=== PATIENT | female | born 1960 | race Caucasian/White ===

== ENCOUNTER → 2018-06-04 07:26 | Outpatient (CLI) | payer OTHER, SELFPAY | PROVIDERS: Family Provider Family Medicine; PCP Family Medicine; Visit Provider Family Medicine | DX: Z12.31 Encounter for screening mammogram for malignant neoplasm of breast (principal) | CPT/HCPCS: 77063; 77067 ==

== ENCOUNTER → 2019-02-26 06:51 | Outpatient (CLI) | payer OTHER, SELFPAY ==
[2019-02-16 13:09] VITALS: BMI 31.5
--- NOTE | 2019-02-26 10:00 | STRESSREP_ITS ---
Stress Test Report Date: February 26, 2019 Procedure: Pharmacologic stress nuclear imaging study Indications: Dyspnea Consent: Per the patient Procedure: The patient underwent pharmacologic (Regadenoson) evaluation with a peak heart rate of 105 beats per minute (65 %predicted maximal heart rate) and a peak blood pressure of 130/78 mmHg. The baseline ECG demonstrated normal sinus rhythm no significant ST-T changes. EKG during lexiscan infusion revealed no significant change from baseline. EKG post infusion revealed no significant change from baseline [There were no cardiac dysrhythmias pretest, during pharmacologic infusion, or recovery]. [There was no complaint of chest discomfort during pharmacologic infusion or recovery]. Patient had some shortness of breath with Lexiscan infusion. The examination was discontinued secondary to completion of protocol. Impression: 1. Lexiscan stress test test is negative for Lexiscan infusion induced EKG changes of ischemia. 2. Lexiscan stress test test negative for Lexiscan infusion induced chest pain. 3. Results of the nuclear portion of the test is as below Myocardial perfusion imaging study: Technique: The patient was injected with 11.5 millicuries of technetium 99m Cardiolite and subsequently rest SPECT Cardiolite nuclear imaging was obtained in the horizontal long, vertical long, and short axis views. The patient underwent pharmacologic (Regadenoson) evaluation with a peak heart rate of 105 beats per minute (65 % percent predicted maximal heart rate) and a peak blood pressure of 130 mmHg. The patient was injected with 33.3 millicuries of technetium 99m Cardiolite and subsequently stress SPECT Cardiolite nuclear imaging was obtained in the horizontal long, vertical long, and short axis views. A gated Cardiolite study at peak stress was obtained. Interpretation: Rest and stress SPECT Cardiolite nuclear imaging status post realignment, normalization, and attenuation correction demonstrate normal myocardial radioisotope uptake in the rest and stress images. Gated images reveal no significant regional wall motion abnormalities. The reported LVEF is greater than 70%. Impression: 1. There is no evidence of significant ischemia or infarction. 2. Estimated ejection fraction is greater than 70%. This note was generated with [employer] software. It may contain incorrect words, spelling, and punctuation that were not noted in checking the note before signing.
== END ==
PROVIDERS: Family Provider Family Medicine; PCP Family Medicine; Referring Provider Specialist; Visit Provider Specialist
DX: I10 Essential (primary) hypertension (principal); R06.09 Other forms of dyspnea; R06.02 Shortness of breath
CPT/HCPCS: 78452; 93017; 93306; A9500; A4216; J2785

== ENCOUNTER → 2019-06-08 08:22 | Outpatient (CLI) | payer OTHER, SELFPAY ==
[2019-03-02 10:58] VITALS: BMI 30.8
--- NOTE | 2019-06-08 08:24 | BI_ITS ---
MAMMOGRAPHY - BILATERAL SCREENING 3-D TOMOSYNTHESIS REASON FOR EXAM: Female, 59 years old. Bilateral Screening 3-D tomosynthesis PERTINENT HISTORY: Grandmother on the paternal side with breast cancer.. TECHNIQUE: 2-D mammograms and 3-D Tomosynthesis of the breast (s) were performed. CAD was performed. COMPARISON: 06/04/2018,. FINDINGS: The breast composition is composed of scattered fibroglandular density. A 1.4 cm focal prominence is visualized on both the MLO and also CC view about 5 cm from the nipple, along the 6:00 axis, and further assessment with spot compression mammogram and if persistent with sonogram is recommended as follow-up. Scattered benign calcifications are seen. No dense spiculated masses or suspicious microcalcifications are identified. No architectural distortion is identified. There is no skin thickening or retraction. BI/SCREEN MAMM (CAD) W/KAY BILAT IMPRESSION: A 1.4 cm focal prominence is visualized on both the MLO and also CC view about 5 cm from the nipple, along the 6:00 axis, and further assessment with spot compression mammogram and if persistent with sonogram is recommended as follow-up. ASSESSMENT CATEGORY: BIRADS Category 0: Incomplete. Need additional imaging evaluation as above. A letter regarding these results will be sent to the patient by the facility within 30 days. FOLLOW UP RECOMMENDATION: Additional imaging recommended as above. (E) Approximately 10% of breast cancers are not detected by mammography. A normal mammogram should not delay biopsy of a clinically suspicious abnormality. Electronically Signed: Jason Null MD at 15:19 EDT Tel [phone], Service support ,
== END ==
PROVIDERS: Family Provider Family Medicine; PCP Family Medicine; Referring Provider Family Medicine; Visit Provider Family Medicine
DX: Z12.31 Encounter for screening mammogram for malignant neoplasm of breast (principal); Z80.3 Family history of malignant neoplasm of breast
CPT/HCPCS: 77063; 77067

== ENCOUNTER → 2019-06-18 13:48 | Outpatient (CLI) | payer OTHER, SELFPAY ==
[2019-03-02 10:58] VITALS: BMI 30.8
--- NOTE | 2019-06-18 13:56 | BI_ITS ---
MAMMOGRAPHY - UNILATERAL DIAGNOSTIC: RIGHT BREAST REASON FOR EXAM: Female, 59 years old. Abnormal screening mammogram. PERTINENT HISTORY: Grandmother with breast cancer. TECHNIQUE: Compression spot views of the right breast were obtained. CAD: Full Field Digital Mammography with Computer Added Detection was performed. COMPARISON: Comparison is made with prior study dated June 08, 2019. FINDINGS: Breast Composition: There are scattered areas of fibroglandular density. There are no dominant masses or suspicious calcifications. No other significant abnormalities are identified. BI/DIAG MAMM W/CAD, UNILAT IMPRESSION: No mammographic abnormality is seen. Ultrasound correlation is recommended. ASSESSMENT CATEGORY: BIRADS Category 0: Incomplete. Need additional imaging evaluation. A letter regarding these results will be sent to the patient by the facility within 30 days. Approximately 10% of breast cancers are not detected by mammography. A normal mammogram should not delay biopsy of a clinically suspicious abnormality. Electronically Signed: Phoenix Rawls, at 15:35 EDT , Service support ,
--- NOTE | 2019-06-18 13:57 | US_ITS ---
STUDY: ULTRASOUND BREAST - RIGHT REASON FOR EXAM: Female, 59 years old. Abnormal screening mammogram. TECHNIQUE: Axial and longitudinal images of the RIGHT breast were performed with a high resolution ultrasound transducer. COMPARISON: Comparison is made with prior mammogram done earlier in the day as well as prior mammogram dated June 08, 2019. FINDINGS: RIGHT Breast: There is evidence of a 6 mm x 7 mm x 7 mm hypoechoic irregular density with shadowing at the 6:00 position of the breast at 1 cm from the nipple. A biopsy is recommended. US/Breast Limited Unilateral IMPRESSION: 6 mm x 7 mm x 7 mm irregular hypoechoic density with posterior acoustical shadowing at the 6:00 position breast at 1 cm from the nipple. Correlation with biopsy is recommended. ASSESSMENT CATEGORY: BIRADS Category 4: Suspicious - Biopsy Should Be Considered. A letter regarding these results will be sent to the patient by the facility within 30 days. Electronically Signed: Phoenix Rawls, at 15:38 EDT , Service support ,
== END ==
PROVIDERS: Family Provider Family Medicine; PCP Family Medicine; Referring Provider Family Medicine; Visit Provider Family Medicine
DX: R92.8 Other abnormal and inconclusive findings on diagnostic imaging of breast (principal)
CPT/HCPCS: 76642; 77065

== ENCOUNTER → 2019-06-25 14:07 | Outpatient (CLI) | payer OTHER, SELFPAY ==
[2019-06-24 08:46] VITALS: BMI 30.8
--- NOTE | 2019-06-25 | IMM_PTH ---
PATIENT: CONNOR GARCIA LOC: OPUS U#:[id number] AGE/SX: 65/F ROOM: RE06/25/[address]: Dr. Sean Carballo MD : 1960 BED: DIS: SPEC #: [id number] RECD: 06/29/19 12:12 STATUS: NEL REQ #: [id number] LI: 06/25/19 00:[address]: Sean Carballo DEPT: IMMUNOHISTOCHEMISTRY RECD BY: Lauren Reis ENTERED: 06/29/19 12:13 SP TYPE: IMMUNO OTHR DR: Dr. Ilda Yeager DO Tissues: Right breast, NOS Procedures: Calponin-1(initial) P40 (add) PHYSICIAN & [place] [id number] SPECIMEN INFORMATION: Tissue Source: Right breast mass at 6 o'clock Clinical Info: Right breast mass at 6 o'clock Specimen Number: [id number] CPT code: 33477, 09062 METHODOLOGY: Deparaffinized sections of prefer/formalin-fixed tissue or PAP/DQ stained slides are incubated with monoclonal/polyclonal antibodies/oligonucleotide probes. Localization is made via biotin free immunoperoxidase method. Appropriate controls are performed and reacted as expected. Results on target cell population are indicated in the following table: RESULTS: ANTIBODY / CLONE RESULT P40 (BC28) positive Calponin-1 (WS767R) positive These tests were developed and their performance characteristics determined by [facility]. They may not have been cleared or approved by the U.S. Food and Drug Administration. The FDA has determined that such clearance or approval is not necessary. INTERPRETATION: Right breast mass at 6 o'clock, ultrasound-guided biopsy: Benign breast tissue. AM:[place] 06/29/19
--- NOTE | 2019-06-25 | BRBX_PTH ---
PATIENT: CONNOR GARCIA LOC: OPUS U#:[id number] AGE/SX: 65/F ROOM: RE06/25/[address]: Dr. Sean Carballo MD : 1960 BED: DIS: SPEC #: [id number] RECD: 06/25/19 15:19 STATUS: NEL TRICIA #: [id number] LI: 06/25/19 00:[address]: Sean Carballo DEPT: SURGICAL PATHOLOGY RECD BY: Harish Castro ENTERED: 06/26/19 08:40 SP TYPE: BREAST BX OTHR DR: Dr. Ilda Yeager DO Tissues: Right breast, NOS Procedures: Surgery Specimen Level IV HEADER OPERATION: Ultrasound-guided right breast biopsy PRE-OP DIAGNOSIS: Right breast mass at 6 o'clock TISSUE SUBMITTED: Right breast mass at 6 o'clock ISCHEMIC TIME: 30 seconds FIXATION TIME: 4.5 hours MICROSCOPIC DIAGNOSIS Right breast, ultrasound-guided needle core biopsy: Fibrocystic change. Focal microcalcifications. No evidence of malignancy. AM:[place] 06/29/19 COMMENT Immunohistochemistry ([id number]) supports the above diagnosis. MICROSCOPIC DESCRIPTION Slides are reviewed. GROSS DESCRIPTION Received in fixative is one container labeled with the patient's name and designated right breast. The specimen consists of multiple elongated fragments of paulino-yellow fibroadipose tissue that in aggregate measure 2.5 x 2 x 0.1 cm. The entire specimen is submitted in one cassette. / SJ:vent[place] 06/26/19 TC:5 CPT: 92679
--- NOTE | 2019-06-25 14:25 | US_ITS ---
STUDY: ULTRASOUND BREAST - RIGHT REASON FOR EXAM: Female, 59 years old. Ultrasound guided right breast biopsy. TECHNIQUE: Axial and longitudinal images of the RIGHT breast were performed with a high resolution ultrasound transducer. COMPARISON: Comparison is made with prior ultrasound of the right breast dated June 18, 2019. FINDINGS: RIGHT Breast: Under direct sonographic guidance, the surgeon performed core biopsies of the 5 mm x 4 mm x 4 mm hypoechoic irregular nodule at the 6:00 position breast US/US Breast Biopsy 1st Lesion IMPRESSION: Ultrasound guided right breast biopsy. ASSESSMENT CATEGORY: BIRADS Category 4: Suspicious - Biopsy Should Be Considered. A letter regarding these results will be sent to the patient by the facility within 30 days. Electronically Signed: Phoenix Rawls, at 15:33 EDT , Service support ,
--- NOTE | 2019-06-25 15:12 | PCM.OPRPT ---
Problem List (1) Breast mass, right Status: Acute Report of Operation Date of Procedure: 06/25/19 Pre-Operative Diagnosis: Right breast mass Post-Operative Diagnosis: Same Surgery/Procedure Performed:: Ultrasound-guided right breast core biopsy Specimen's removed: Right breast biopsy Description of Procedure: The patient was placed in supine position and ultrasound of the right breast was performed by geospatial information technologist. The small lesion was identified. Next the inferior breast was prepped and draped in usual sterile fashion and injected with lidocaine under ultrasound guidance. A skin berenice was made and the mammotome needle was placed adjacent to this mass under ultrasound guidance. Several passes were performed. The mammotome needle was then removed and a titanium clip was placed into this mass. That needle was removed and a Steri-Strip and bandage were placed over the incision. Patient tolerated the procedure well.
== END ==
PROVIDERS: Family Provider Family Medicine; PCP Family Medicine; Referring Provider Surgery; Visit Provider Surgery
DX: R92.0 Mammographic microcalcification found on diagnostic imaging of breast (principal); N63.10 Unspecified lump in the right breast, unspecified quadrant
CPT/HCPCS: 19083; 88305; 88341; 88342

== ENCOUNTER → 2019-08-12 08:33 | Outpatient (CLI) | payer OTHER, SELFPAY ==
[2019-07-15 08:37] VITALS: BMI 30.8
[2019-08-12 10:07] LABS: Absolute Lymphocyte Count 1.94 X10^3/uL (0.83-4.51); Basophil# 0.03 X10^3/uL; Basophil% 0.5 % (0-1); Eosinophil# 0.15 X10^3/uL; Eosinophils% 2.3 % (0-5); Hematocrit 45.5 % (37-47); Hemoglobin 14.8 g/dL (12.0-15.0); Lymphocyte # 1.94 X10^3/ul (4.0); Lymphocyte % 29.3 % (19-41); Mean Corp Hgb Conc 32.5 g/dL (32-36); Mean Corpuscular Hgb 29.7 pg (27.0-32.0); Mean Corpuscular Volume 91.4 fL (81-99); Mean Platelet Vol. 10.8 fl (6.2-12.0); Monocyte# 0.52 X10^3/uL; Monocyte% 7.9 % (0-10); NRBC Flagged by Analyzer 0 % (0-5); Neutrophil # 3.97 X10^3/uL (2.7-7.7); Neutrophil % 59.8 % (47-70); Platelet Count 245 K/mm3 (150-450); RBC Distribution Width CV 12.5 % (11.6-14.6); RBC Distribution Width SD 41.7 fl (35.1-43.9); Red Blood Count 4.98 M/mm3 (4.2-5.4); White Blood Count 6.6 K/mm3 (4.4-11.0)
[2019-08-12 10:33] LABS: ALB/GLOB Ratio 1.1 RATIO (0.9-2.4); AST(SGOT) 25 U/L (15-37); Alanine Aminotransfer ALT/SGPT 60 U/L (13-56); Alkaline Phosphatase 60 U/L (45-117); Anion Gap 5 (5-15); BUN 20 mg/dL (7-18); BUN/Creat Ratio 27.9 RATIO (10-20); Calcium,Total 9.1 mg/dL (8.5-10.1); Chloride 102 mmol/L (98-107); Cholesterol 199 mg/dL (200); Creatinine, Serum 0.72 mg/dL (0.55-1.02); EST Glomerular Filtration Rate 88 mL/min (>60); Est Glom Filt Rate - Afr Amer 107 mL/min (>60); Free T3 3.4 pg/mL (2.18-3.98); Globulin 3.7 g/dL (2.2-4.2); Glucose 101 mg/dL (74-106); High Density Lipoprotein 61 mg/dL; Potassium 3.7 mmol/L (3.5-5.1); Protein, Total 7.7 g/dL (6.4-8.2); Sodium Level 139 mmol/L (136-145); Thyroid Stim Hormone (TSH) 1.45 uIU/mL (0.358-3.74); Triglycerides 123 mg/dL; Very Low Density Lipoprotein 25 mg/dL (5-40)
== END ==
PROVIDERS: Family Provider Family Medicine; PCP Family Medicine; Referring Provider Family Medicine; Visit Provider Family Medicine
DX: E78.5 Hyperlipidemia, unspecified (principal); E03.9 Hypothyroidism, unspecified; Z51.81 Encounter for therapeutic drug level monitoring
CPT/HCPCS: 36415; 80053; 80061; 84439; 84443; 84481; 85025

== ENCOUNTER 2019-09-08 05:30 | Day surgery (SDC) | payer OTHER, SELFPAY ==
[2019-07-15 08:37] VITALS: BMI 30.8
--- NOTE | 2019-09-07 22:58 | PCM.HP.BLA ---
History and Physical Date of Admission: 09/08/19 HISTORY OF PRESENT ILLNESS 59 year old woman presents with some triggering of her right long finger. She has had injections with steroids in the past with some relief but it is persistent. She notices occasional zingers with activity. She had an x-ray done a couple of years ago which showed swelling of the middle finger without underlying bony pathology. She states it is getting tougher to straighten the finger when she has a triggering episode, but she is able to straighten her finger. Patient is right hand dominant. She presents at this time for further evaluation and treatment. PAST MEDICAL HISTORY Hyperthyroidism Hypertension History of skin cancer Pharyngitis PAST SURGICAL HISTORY colonoscopy tubal ligation appendectomy hysterectomy ALLERGIES No Known Allergies MEDICATIONS lisinopril-hydrochlorothiazide vitamin FAMILY HISTORY Father - Lung cancer, Hypertension Grandmother - Breast cancer Aunt - Breast cancer Brother - Kidney disease SOCIAL HISTORY Smoking Status: Never smoker alcohol intake: never substance use type: does not use REVIEW OF SYSTEMS General - Denies fever, fatigue, and weight loss. Eyes - Denies cataracts and glaucoma. ENT - Denies nasal congestion and sore throat. Endocrine - Denies excessive thirst and urination. Skin - Denies suspicious lesions and skin cancer. Musculoskeletal - Denies joint pain, joint stiffness, weakness of muscles and joints, back pain, and arthritis. Has trigger finger right long finger. Neuro - Denies headaches. Has occasional zingers in right long finger with activity. Cardiovascular - Denies chest pain, fatigue, and shortness of breath with exertion. Psych - Denies anxiety and depression. Respiratory - Denies chronic cough and shortness of breath. Gastrointestinal - Denies nausea, vomiting, diarrhea, and constipation. Hematologic - Denies abnormal bruising and bleeding. Genitourinary - Denies hematuria and urinary frequency. PHYSICAL EXAMINATION General - Alert and Oriented. HEENT - PERRL. EOMI. Throat is clear. Neck - Supple and nontender. No cervical adenopathy. Lungs - Clear to auscultation. Heart - Regular rate and rhythm. Abdomen - Soft and nondistended. Extremities - FROM. No axillary adenopathy. Radial pulses are palpable. On the right hand involving the long finger is evidence of triggering. A clicking sound is audible. Some thickening and some nodularity noted in the distal palmar crease by the long finger where the A1 sandip is located. She can straighten her fingers without difficulty. No sensory deficits noted to pinprick. Patient is right hand dominant. Neuro - CN II-XII grossly intact. Psych - Normal mood and affect. ASSESSMENT Trigger finger, right long finger. PLAN X-ray reviewed. Clinically patient has trigger finger involving the right long finger. Recommend operative intervention with incision tendon sheath involving the A1 asndip to release the triggering. Surgery will be done under Micheal Block anesthesia on an outpatient basis. She will have a bulky dressing after surgery. She will be encouraged to use her fingers with range of motion exercises to minimize stiffness. Patient was informed of the risks and complications of the procedure including alternatives to surgery. These were discussed with the patient personally. Patient voices understanding and wishes to proceed. Some of the risks and complications were included in a form from the [employer]. Some of the risks and complications that were discussed included but were not inclusive of failure to diagnose including symptom relief, pain, infection, numbness, stiffness, loss of digit, RSD (CRPS), need for further surgery, contracture, and wound healing problems.
[2019-09-08 05:55] VITALS: BP 136/80; PULSE 82; RESP 16; TEMP 36.4; O2SAT 94; BMI 31.0
[2019-09-08] MEDS: Lactated Ringers 1,000 ML 100 ML IV ×2 (06:17→08:26)
[2019-09-08] MEDS: Cefazolin 2 GM in 0.9% Normal Saline 100 ML IV (07:27)
[2019-09-08] MEDS: Mupirocin Ointment 22gm Tube 1 APPLIC (08:00)
--- NOTE | 2019-09-08 08:11 | OP.PCM_ITS ---
Report of Operation Date of Procedure: 09/08/19 Pre-Operative Diagnosis: Trigger finger, right long finger. Post-Operative Diagnosis: Same. Surgery/Procedure Performed:: Incision tendon sheath trigger finger right long finger. Description of Surgical Findings:: 59 year old woman presents with some triggering of her right long finger. She has had injections with steroids in the past with some relief but it is persistent. She notices occasional zingers with activity. She had an x-ray done a couple of years ago which showed swelling of the middle finger without underlying bony pathology. She states it is getting tougher to straighten the finger when she has a triggering episode, but she is able to straighten her finger. Patient is right hand dominant. Patient was informed of the risks and complications of the procedure including alternatives to surgery. These were discussed with the patient personally. Patient voices understanding and wishes to proceed. Some of the risks and complications were included in a form from the [employer]. Some of the risks and complications that were discussed included but were not inclusive of failure to diagnose including symptom relief, pain, infection, numbness, stiffness, loss of digit, RSD (CRPS), need for further surgery, contracture, and wound healing problems. Total tourniquet time - 20 minutes. medical technician: None Type of Anesthesia:: Block,[place] Specimen's removed: None. Drains: None. Estimated Blood Loss (mL): 1 ml. Description of Procedure: Patient was taken to OR in supine position and was given IV sedation. A Micheal Block was administered. The right hand was prepped and draped in the usual fashion. SCD's were placed for DVT prophylaxis. Perioperative antibiotics were given intravenously. A horizontal marking was made over the A1 sandip at the distal palmar crease by the long finger. This marking was infiltrated with xylocaine and epinephrine. After waiting 5 minutes for the anesthetic to take effect, a horizontal incision was made over the A1 sandip at the distal palmar crease by the long finger. Incision was carried into the subcutaneous tissue. Using a hemostat, I dissected in a longitudinal direction to minimize injury to the adjacent digital nerves. Dissection was carried down to the A1 sandip tendon sheath to the right long finger. Using a scalpel, I incised the tendon sheath longitudinally distally up to the A2 sandip. The flexor tendons were able to glide through the released A1 sandip tendon sheath easily without evidence of any further obstruction. The wound was irrigated with saline. The horizontal incision was approximated with 5-0 Nylon vertical mattress sutures and simple interrupted sutures. The tourniquet was released after 20 minutes. Hemostasis obtained with compression and elevation. Antibiotic ointment was applied to the suture line followed by Xeroform gauze and 4x4 gauze followed by 2 inch Hernandez wrap. Patient tolerated the procedure well and was sent to PACU in satisfactory condition. Patient will be sent home on antibiotics and pain medication. She will keep her right hand elevated during the initial postop period. She is encouraged to use her fingers with range of motion to minimize stiffness. Patient will followup in a week for a wound check and for discussion of the pathology report. The sutures will be removed in two weeks. Grafts/Implants Used: None. - Complications None. - Admit VTE Documentation VTE Present on Admission: No VTE Mechan Device Prophylaxis: SCD's VTE Pharm Prophylaxis ordered?: No Code Visit Surgery Charges CPT - 13015 ICD-10 - M65.331
[2019-09-08 08:15] VITALS: BP 136/80; BP 137/77; PULSE 97; RESP 16; TEMP 36; O2SAT 97
--- NOTE | 2019-09-08 08:17 | DCINST_ITS ---
You will use the following diet at home:: No restrictions Discharge Activity: May not drive while taking narcotic pain medications., May Shower - in two days., - - no heavy lifting. keep right hand elevated. May shower in (days): 2 May resume sexual activity in: No Restrictions Weight Bearing Status: Weight bearing as tolerated Lifting Restrictions: 20 lbs. Keep extremity elevated above heart level: Right Arm Call your doctor if your incision/area has: Continuous Slow Oozing, Sudden Increased Bleeding, Increased Pain/ Swelling, Increased Redness, Foul Smelling Discharge, Swelling at the incision site Call your doctor if you observe: Fever of 101 or Higher, Coldness, Increased Pain, Shortness of breath, Chest pain, Calf discomfort, Uncontrolled pain Suture Line Care: - - after dressing removed in two days, apply bactroban ointment to suture line daily. Change Dressing in (Days):: 2 Cleanse incision/area with: - - may get incision wet in the shower in two days. Allergies/Adverse Reactions: Allergies No Known Allergies Allergy (Verified 09/01/19 11:37) Medications to take at Discharge lisinopril 20 mg-hydrochlorothiazide 12.5 mg tablet 1 tab PO DAILY 02/13/19 Multivitamin with Minerals [Multiple Vitamin] 1 ea PO DAILY 09/01/19 Cefadroxil [Duricef] 500 mg PO BID #8 cap 09/08/19 Oxycodone HCl/Acetaminophen [Percocet 5/325] 1 tab PO Q6H PRN PRN 5 Days #20 tab 09/08/19 The following prescriptions were given: Cefadroxil [Duricef] 500 mg PO BID #8 cap Prescription Printed Oxycodone HCl/Acetaminophen [Percocet 5/325] 1 tab PO Q6H PRN PRN 5 Days #20 tab PRN Reason: Pain Score 4-5/10 Prescription Printed Primary Care Physician: Ilda Yeager DO [Primary Care Provider] - Test Results: Test results from this visit will be discussed in further detail at your follow- up appointment, if applicable. Please Follow Up With: Michael Presley MD When: one week. call [phone] for appt. Proposed Discharge Date: 09/08/19
[2019-09-08 08:20] VITALS: BP 136/80; BP 141/80; PULSE 94; RESP 16; O2SAT 99
[2019-09-08 08:25] VITALS: BP 133/81; BP 136/80; PULSE 93; RESP 16; O2SAT 97
[2019-09-08 08:30] VITALS: BP 135/77; BP 136/80; PULSE 92; RESP 16; TEMP 36.2; O2SAT 99
[2019-09-08 09:00] VITALS: BP 136/80
== END 2019-09-08 09:14 | disposition home or self-care (01) ==
LOC: SDC 05:30 → AC 05:32
PROVIDERS: Family Provider Family Medicine; PCP Family Medicine; Referring Provider Surgery; Visit Provider Surgery
PROC: (CPT 26055; principal; 2019-09-08 07:20)
DX: M65.331 Trigger finger, right middle finger (principal); I10 Essential (primary) hypertension; Z79.899 Other long term (current) drug therapy; E05.90 Thyrotoxicosis, unspecified without thyrotoxic crisis or storm
CPT/HCPCS: 01810; 26055; J7120; A4216; J2405

== ENCOUNTER → 2019-11-26 14:07 | Outpatient (CLI) | payer OTHER, SELFPAY ==
[2019-09-28 16:43] VITALS: BMI 31.0
--- NOTE | 2019-11-26 14:08 | BI_ITS ---
MAMMOGRAPHY - UNILATERAL DIAGNOSTIC: RIGHT BREAST REASON FOR EXAM: Female, 59 years old. Six-month follow-up for prior right ultrasound-guided breast biopsy. PERTINENT HISTORY: Grandmother with breast cancer. TECHNIQUE: Digital unilateral breast ramonita (3D mammographic acquisition) in the CC and MLO projections. 2-D mediolateral oblique (MLO) and craniocaudad (CC) views of both breasts were obtained. CAD: Full Field Digital Mammography with Computer Added Detection was performed. COMPARISON: Comparison is made with prior mammogram dated June 18, 2019 and prior ultrasound dated June 25, 2019. FINDINGS: Breast Composition: The breasts are heterogeneously dense, which may obscure small masses. There are no dominant masses or suspicious calcifications. A tissue clip marker is seen within the small nodular density at the 6:00 position of the breast. No other significant abnormalities are identified. BI/DIAG MAMM W/CAD, UNILAT IMPRESSION: Stable unilateral diagnostic mammogram. One year follow-up mammogram recommended. (A) ASSESSMENT CATEGORY: BIRADS Category 2: Benign. A letter regarding these results will be sent to the patient by the facility within 30 days. Approximately 10% of breast cancers are not detected by mammography. A normal mammogram should not delay biopsy of a clinically suspicious abnormality. Electronically Signed: Phoenix Rawls, at 15:32 EST , Service support ,
== END ==
PROVIDERS: PCP Family Medicine; Referring Provider Surgery; Visit Provider Surgery
DX: N63.10 Unspecified lump in the right breast, unspecified quadrant (principal); Z80.3 Family history of malignant neoplasm of breast
CPT/HCPCS: 77061; 77065; G0279

== ENCOUNTER → 2020-06-23 08:42 | Outpatient (CLI) | payer OTHER, SELFPAY ==
[2019-09-28 16:43] VITALS: BMI 31.0
--- NOTE | 2020-06-23 08:46 | BI_ITS ---
MAMMOGRAPHY - BILATERAL SCREENING REASON FOR EXAM: Female, 60 years old. Routine annual screening examination. PERTINENT HISTORY: Grandmother with breast cancer. History of prior right ultrasound-guided breast biopsy. TECHNIQUE: Digital bilateral breast kay (3D mammographic acquisition) in the CC and MLO projections. 2-D mediolateral oblique (MLO) and craniocaudad (CC) views of both breasts were obtained. CAD: Full Field Digital Mammography with Computer Added Detection was performed. COMPARISON: Comparison is made with prior examination dated 06/08/2019 and 11/26/2019. FINDINGS: Breast Composition: The breasts are heterogeneously dense, which may obscure small masses. There are no dominant masses or suspicious calcifications. Once again, a tissue clip marker is seen at the 6 o''clock position of the right breast. No other significant abnormalities are identified. There has been no significant change since the prior study. BI/SCREEN MAMM (CAD) W/KAY BILAT IMPRESSION: Stable bilateral screening mammogram. Yearly follow-up mammogram recommended. (A) ASSESSMENT CATEGORY: BIRADS Category 2: Benign. A letter regarding these results will be sent to the patient by the facility within 30 days. Approximately 10% of breast cancers are not detected by mammography. A normal mammogram should not delay biopsy of a clinically suspicious abnormality. [id number] Electronically Signed: Phoenix Rawls, at 10:12 EDT , Service support ,
== END ==
PROVIDERS: PCP Family Medicine; Referring Provider Family Medicine; Visit Provider Family Medicine
DX: Z12.31 Encounter for screening mammogram for malignant neoplasm of breast (principal); Z80.3 Family history of malignant neoplasm of breast
CPT/HCPCS: 77063; 77067

== ENCOUNTER → 2021-07-31 10:24 | Outpatient (CLI) | payer BC, SELFPAY ==
[2019-09-28 16:43] VITALS: BMI 31.0
--- NOTE | 2021-07-31 10:54 | BI_ITS ---
MAMMOGRAPHY - BILATERAL SCREENING REASON FOR EXAM: Female, 61 years old. Routine annual screening examination. PERTINENT HISTORY: Grandmother with breast cancer. Aunt with breast cancer. Prior bilateral breast biopsies. TECHNIQUE: Digital bilateral breast kay (3D mammographic acquisition) in the CC and MLO projections. 2-D mediolateral oblique (MLO) and craniocaudad (CC) views of both breasts were obtained. CAD: Full Field Digital Mammography with Computer Added Detection was performed. COMPARISON: Comparison is made with prior study dated 06/23/2020 and 11/26/2019. FINDINGS: Breast Composition: The breasts are heterogeneously dense, which may obscure small masses. There are no dominant masses or suspicious calcifications. Once again, a tissue clip marker is seen at the 6 o''clock position of the right breast. Stable small benign-appearing bilateral axillary lymph nodes. No other significant abnormalities are identified. There has been no significant change since the prior study. BI/SCRN MAMM (CAD)W/KAY BILAT IMPRESSION: Stable bilateral screening mammogram. Yearly follow-up mammogram recommended. (A) ASSESSMENT CATEGORY: BIRADS Category 2: Benign. A letter regarding these results will be sent to the patient by the facility within 30 days. Approximately 10% of breast cancers are not detected by mammography. A normal mammogram should not delay biopsy of a clinically suspicious abnormality. [id number] Electronically Signed: Phoenix Rawls MD at 12:00 EDT , Service support ,
[2021-07-31 12:32] LABS: Hematocrit 43.2 % (37-47); Hemoglobin 14.4 g/dL (12.0-15.0); Mean Corp Hgb Conc 33.3 g/dL (32-36); Mean Platelet Vol. 11.3 fl (6.2-12.0); Platelet Count 265 K/mm3 (150-450); RBC Distribution Width CV 12.3 % (11.6-14.6); RBC Distribution Width SD 40.8 fl (35.1-43.9); White Blood Count 6.8 K/mm3 (4.4-11.0)
[2021-07-31 12:56] LABS: T3 Total - Triiodothyronine 1.37 ng/mL (0.6-1.81)
[2021-07-31 13:05] LABS: AST(SGOT) 21 U/L (15-37); Alanine Aminotransfer ALT/SGPT 42 U/L (13-56); Albumin, Serum 3.9 g/dL (3.2-5.0); Alkaline Phosphatase 54 U/L (45-117); Anion Gap 5 (5-15); BUN 17 mg/dL (7-18); BUN/Creat Ratio 26.5 RATIO (10-20); Calcium,Total 9.2 mg/dL (8.5-10.1); Chloride 105 mmol/L (98-107); Creatinine, Serum 0.64 mg/dL (0.55-1.02); EST Glomerular Filtration Rate 100 mL/min (>60); Est Glom Filt Rate - Afr Amer 121 mL/min (>60); Globulin 3.8 g/dL (2.2-4.2); Glucose 99 mg/dL (74-106); Potassium 3.3 mmol/L (3.5-5.1); Protein, Total 7.7 g/dL (6.4-8.2); Sodium Level 139 mmol/L (136-145); T4 Total, Thyroxin 8.5 ug/dL (4.8-13.9); Thyroid Stim Hormone (TSH) 1.03 uIU/mL (0.358-3.74)
== END ==
PROVIDERS: PCP Family Medicine; Referring Provider Family Medicine; Visit Provider Family Medicine
DX: Z12.31 Encounter for screening mammogram for malignant neoplasm of breast (principal); E03.9 Hypothyroidism, unspecified; E78.5 Hyperlipidemia, unspecified; Z51.81 Encounter for therapeutic drug level monitoring
CPT/HCPCS: 36415; 77063; 77067; 80053; 84436; 84443; 84480; 85027

== ENCOUNTER → 2022-08-16 | Outpatient (CLI) | payer BC, SELFPAY ==
--- NOTE | 2022-08-16 10:03 | BI_ITS ---
MAMMOGRAPHY - BILATERAL SCREENING REASON FOR EXAM: Female, 62 years old. Routine annual screening examination. PERTINENT HISTORY: Grandmother with breast cancer. Aunt with breast cancer. TECHNIQUE: Digital bilateral breast kay (3D mammographic acquisition) in the CC and MLO projections. 2-D mediolateral oblique (MLO) and craniocaudad (CC) views of both breasts were obtained. CAD: Full Field Digital Mammography with Computer Added Detection was performed. COMPARISON: Comparison is made with prior study dated 07/31/2021 and 06/23/2020. FINDINGS: Breast Composition: The breasts are heterogeneously dense, which may obscure small masses. There are no dominant masses or suspicious calcifications. A tissue clip marker is once again seen at the 6 o''clock position of the right breast No other significant abnormalities are identified. There has been no significant change since the prior study. BI/SCRN MAMM (CAD)W/KAY BILAT IMPRESSION: Stable bilateral screening mammogram. Yearly follow-up mammogram recommended. (A) ASSESSMENT CATEGORY: BIRADS Category 2: Benign. A letter regarding these results will be sent to the patient by the facility within 30 days. Approximately 10% of breast cancers are not detected by mammography. A normal mammogram should not delay biopsy of a clinically suspicious abnormality. [id number] Electronically Signed: Phoenix Rawls MD at 11:09 EDT ,
== END | disposition home or self-care (01) ==
LOC: OPBI 10:01
PROVIDERS: PCP Family Medicine; Visit Provider Family Medicine
DX: Z12.31 Encounter for screening mammogram for malignant neoplasm of breast (principal); Z80.3 Family history of malignant neoplasm of breast
CPT/HCPCS: 77063; 77067

== ENCOUNTER → 2022-09-01 | Outpatient (CLI) | payer BC, SELFPAY ==
[2022-09-01 09:33] LABS: Absolute Lymphocyte Count 2.58 X10^3/uL (0.83-4.51); Absolute Neutrophil Count 5.4 X10^3/uL (2.0-7.7); Basophil# 0.04 X10^3/uL; Basophil% 0.4 % (0-1); Eosinophil# 0.19 X10^3/uL; Eosinophils% 2.1 % (0-5); Hematocrit 43.9 % (37-47); Hemoglobin 14.5 g/dL (12.0-15.0); Lymphocyte # 2.58 X10^3/ul (0.83-4.51); Lymphocyte % 28.8 % (19-41); Mean Corpuscular Hgb 30.7 pg (27.0-32.0); Mean Platelet Vol. 10.4 fl (6.2-12.0); Monocyte# 0.69 X10^3/uL; Monocyte% 7.7 % (0-10); NRBC Flagged by Analyzer 0 % (0-5); Neutrophil # 5.41 X10^3/uL (2.7-7.7); Neutrophil % 60.4 % (47-70); Platelet Count 287 K/mm3 (150-450); RBC Distribution Width SD 44.6 fl (35.1-43.9); Red Blood Count 4.72 M/mm3 (4.2-5.4)
[2022-09-01 10:07] LABS: AST(SGOT) 17 U/L (15-37); Alanine Aminotransfer ALT/SGPT 36 U/L (13-56); Albumin, Serum 3.7 g/dL (3.2-5.0); Alkaline Phosphatase 56 U/L (45-117); Anion Gap 7 (5-15); BUN 18 mg/dL (7-18); BUN/Creat Ratio 29.4 RATIO (10-20); Calcium,Total 9.1 mg/dL (8.5-10.1); Chloride 103 mmol/L (98-107); Cholesterol 191 mg/dL (200); Creatinine, Serum 0.61 mg/dL (0.55-1.02); EST Glomerular Filtration Rate 105 mL/min (>60); Est Glom Filt Rate - Afr Amer 127 mL/min (>60); Free T3 2.6 pg/mL (2.18-3.98); Globulin 3.6 g/dL (2.2-4.2); Glucose 104 mg/dL (74-106); High Density Lipoprotein 70 mg/dL; Magnesium 2.3 mg/dL (1.6-2.6); Potassium 3.7 mmol/L (3.5-5.1); Protein, Total 7.3 g/dL (6.4-8.2); Sodium Level 140 mmol/L (136-145); T4 Free Direct 0.92 ng/dL (0.76-1.46); Thyroid Stim Hormone (TSH) 1.08 uIU/mL (0.358-3.74); Triglycerides 107 mg/dL; Very Low Density Lipoprotein 21 mg/dL (5-40)
== END | disposition home or self-care (01) ==
LOC: LAB 08:35
PROVIDERS: PCP Family Medicine; Visit Provider Family Medicine
DX: Z00.00 Encounter for general adult medical examination without abnormal findings (principal); E87.6 Hypokalemia; Z51.81 Encounter for therapeutic drug level monitoring
CPT/HCPCS: 36415; 80053; 80061; 83735; 84439; 84443; 84481; 85025

== ENCOUNTER → 2022-12-19 | Outpatient (CLI) | payer BC, SELFPAY ==
[2022-12-19 17:30] LABS: Absolute Lymphocyte Count 2.42 X10^3/uL (0.83-4.51); Absolute Neutrophil Count 4.5 X10^3/uL (2.0-7.7); Basophil# 0.04 X10^3/uL; Basophil% 0.5 % (0-1); Eosinophil# 0.19 X10^3/uL; Eosinophils% 2.4 % (0-5); Hematocrit 44.5 % (37-47); Hemoglobin 14.2 g/dL (12.0-15.0); Lymphocyte # 2.42 X10^3/ul (0.83-4.51); Lymphocyte % 30.6 % (19-41); Mean Corp Hgb Conc 31.9 g/dL (32-36); Mean Corpuscular Hgb 29.5 pg (27.0-32.0); Mean Corpuscular Volume 92.5 fL (81-99); Mean Platelet Vol. 11.4 fl (6.2-12.0); Monocyte# 0.73 X10^3/uL; Monocyte% 9.2 % (0-10); NRBC Flagged by Analyzer 0 % (0-5); Neutrophil # 4.52 X10^3/uL (2.7-7.7); Platelet Count 273 K/mm3 (150-450); RBC Distribution Width CV 12.6 % (11.6-14.6); RBC Distribution Width SD 42.9 fl (35.1-43.9); Red Blood Count 4.81 M/mm3 (4.2-5.4); White Blood Count 7.9 K/mm3 (4.4-11.0)
[2022-12-19 18:08] LABS: Vitamin B12 553 pg/mL (211-911)
[2022-12-19 18:26] LABS: ALB/GLOB Ratio 1.1 RATIO (0.9-2.4); AST(SGOT) 48 U/L (15-37); Alanine Aminotransfer ALT/SGPT 120 U/L (13-56); Albumin, Serum 3.7 g/dL (3.2-5.0); Alkaline Phosphatase 55 U/L (45-117); Anion Gap 8 (5-15); BUN 16 mg/dL (7-18); BUN/Creat Ratio 22.3 RATIO (10-20); Calcium,Total 9.3 mg/dL (8.5-10.1); Chloride 106 mmol/L (98-107); Creatinine, Serum 0.72 mg/dL (0.55-1.02); EST Glomerular Filtration Rate 87 mL/min (>60); Est Glom Filt Rate - Afr Amer 105 mL/min (>60); Ferritin 325 ng/mL (8-252); Free T3 3.3 pg/mL (2.18-3.98); Globulin 3.3 g/dL (2.2-4.2); Glucose 143 mg/dL (74-106); Iron 104 ug/dL (50-170); Potassium 3.9 mmol/L (3.5-5.1); Sodium Level 141 mmol/L (136-145); T4 Free Direct 0.94 ng/dL (0.76-1.46); Thyroid Stim Hormone (TSH) 1.02 uIU/mL (0.358-3.74)
== END | disposition home or self-care (01) ==
PROVIDERS: PCP Family Medicine; Visit Provider Family Medicine
DX: E05.90 Thyrotoxicosis, unspecified without thyrotoxic crisis or storm (principal); E53.8 Deficiency of other specified B group vitamins; D50.9 Iron deficiency anemia, unspecified; Z51.81 Encounter for therapeutic drug level monitoring
CPT/HCPCS: 36415; 80053; 82607; 82728; 83540; 84439; 84443; 84481; 85025

== ENCOUNTER → 2023-01-05 | Outpatient (CLI) | payer BC, SELFPAY ==
--- NOTE | 2023-01-05 07:54 | US_ITS ---
EXAM: US Abdomen RUQ (limited) HISTORY: ELEVATED LFT''S TECHNIQUE: Right upper quadrant. COMPARISON: None. LIMITATIONS: None. FINDINGS: LIVER: Length 18.7 cm. Increased echogenicity. Main portal vein patent. GALLBLADDER Size: Distended. Stones: None. Wall thickness: Not thickened. 2 mm. Pericholecystic fluid: None. Sonographic Molina sign: Negative. EXTRAHEPATIC BILE DUCTS: Common bile duct 2 mm not dilated. PANCREAS: Unremarkable. RIGHT KIDNEY: No hydronephrosis. ASCITES: None. US/Abdomen Limited IMPRESSION: Hepatomegaly with fatty infiltration. Electronically Signed: Lucinda Rooney MD at 5:48 EDT ,
== END | disposition home or self-care (01) ==
PROVIDERS: PCP Family Medicine; Visit Provider Family Medicine
DX: R74.8 Abnormal levels of other serum enzymes (principal); E83.19 Other disorders of iron metabolism
CPT/HCPCS: 76705

== ENCOUNTER → 2023-02-16 | Outpatient (CLI) | payer BC, SELFPAY ==
[2023-02-16 10:54] LABS: ALB/GLOB Ratio 1.2 RATIO (0.9-2.4); AST(SGOT) 24 U/L (15-37); Alanine Aminotransfer ALT/SGPT 54 U/L (13-56); Albumin, Serum 3.7 g/dL (3.2-5.0); Alkaline Phosphatase 52 U/L (45-117); Anion Gap 6 (5-15); BUN 18 mg/dL (7-18); BUN/Creat Ratio 30.5 RATIO (10-20); Calcium,Total 8.6 mg/dL (8.5-10.1); Chloride 106 mmol/L (98-107); Creatinine, Serum 0.59 mg/dL (0.55-1.02); EST Glomerular Filtration Rate 109 mL/min (>60); Est Glom Filt Rate - Afr Amer 132 mL/min (>60); Ferritin 261 ng/mL (8-252); Glucose 119 mg/dL (74-106); Iron 71 ug/dL (50-170); Potassium 3.8 mmol/L (3.5-5.1); Protein, Total 6.7 g/dL (6.4-8.2); Sodium Level 140 mmol/L (136-145)
== END | disposition home or self-care (01) ==
LOC: LAB 09:41
PROVIDERS: PCP Family Medicine; Referring Provider Family Medicine; Visit Provider Family Medicine
DX: E83.19 Other disorders of iron metabolism (principal); R74.8 Abnormal levels of other serum enzymes
CPT/HCPCS: 36415; 80053; 82728; 83540

== ENCOUNTER 2023-04-08 09:01 | Outpatient (RCR) | payer BC, SELFPAY | END 2023-04-19 23:59 | LOC: NS 09:01 | PROVIDERS: PCP Family Medicine; Referring Provider Family Medicine; Visit Provider Family Medicine | DX: Z71.3 Dietary counseling and surveillance (principal); E66.9 Obesity, unspecified; K76.0 Fatty (change of) liver, not elsewhere classified; I10 Essential (primary) hypertension; Z68.31 Body mass index [BMI] 31.0-31.9, adult | CPT/HCPCS: 97802 ==

== ENCOUNTER → 2023-04-08 | Outpatient (CLI) | payer BC, SELFPAY ==
[2023-04-08 11:24] LABS: ALB/GLOB Ratio 1.1 RATIO (0.9-2.4); AST(SGOT) 18 U/L (15-37); Alanine Aminotransfer ALT/SGPT 41 U/L (13-56); Albumin, Serum 3.8 g/dL (3.2-5.0); Alkaline Phosphatase 52 U/L (45-117); Anion Gap 5 (5-15); BUN 25 mg/dL (7-18); BUN/Creat Ratio 30.1 RATIO (10-20); Calcium,Total 9.4 mg/dL (8.5-10.1); Chloride 106 mmol/L (98-107); Creatinine, Serum 0.83 mg/dL (0.55-1.02); EST Glomerular Filtration Rate 74 mL/min (>60); Est Glom Filt Rate - Afr Amer 89 mL/min (>60); Globulin 3.6 g/dL (2.2-4.2); Glucose 103 mg/dL (74-106); Potassium 4.6 mmol/L (3.5-5.1); Protein, Total 7.4 g/dL (6.4-8.2); Sodium Level 137 mmol/L (136-145)
== END | disposition home or self-care (01) ==
LOC: LAB 10:27
PROVIDERS: PCP Family Medicine; Referring Provider Family Medicine; Visit Provider Family Medicine
DX: Z51.81 Encounter for therapeutic drug level monitoring (principal)
CPT/HCPCS: 36415; 80053

== ENCOUNTER → 2023-08-30 | Outpatient (CLI) | payer BC, SELFPAY ==
--- NOTE | 2023-08-30 07:12 | BI_ITS ---
MAMMOGRAPHY - BILATERAL SCREENING REASON FOR EXAM: Female, 63 years old. Routine annual screening examination. PERTINENT HISTORY: Grandmother with breast cancer. Aunt with breast cancer. TECHNIQUE: Digital bilateral breast kay (3D mammographic acquisition) in the CC and MLO projections. 2-D mediolateral oblique (MLO) and craniocaudad (CC) views of both breasts were obtained. CAD: Full Field Digital Mammography with Computer Added Detection was performed. COMPARISON: Comparison is made with prior study August 16, 2022 and July 31, 2021. FINDINGS: Breast Composition: The breasts are heterogeneously dense, which may obscure small masses. There are no dominant masses or suspicious calcifications. A tissue marker is once again seen at the 6:00 position of the right breast. No other significant abnormalities are identified. There has been no significant change since the prior study. BI/SCRN MAMM (CAD)W/KAY BILAT IMPRESSION: Stable bilateral screening mammogram. Yearly follow-up mammogram recommended. (A) ASSESSMENT CATEGORY: BIRADS Category 2: Benign. A letter regarding these results will be sent to the patient by the facility within 30 days. Approximately 10% of breast cancers are not detected by mammography. A normal mammogram should not delay biopsy of a clinically suspicious abnormality. [id number] Electronically Signed: Phoenix Rawls MD at 9:16 EST ,
[2023-08-30 12:36] LABS: Absolute Lymphocyte Count 1.97 X10^3/uL (0.83-4.51); Absolute Neutrophil Count 4.6 X10^3/uL (2.0-7.7); Basophil# 0.03 X10^3/uL; Basophil% 0.4 % (0-1); Eosinophil# 0.19 X10^3/uL; Eosinophils% 2.6 % (0-5); Hematocrit 43.8 % (37-47); Hemoglobin 13.7 g/dL (12.0-15.0); Lymphocyte # 1.97 X10^3/ul (0.83-4.51); Lymphocyte % 26.6 % (19-41); Mean Corp Hgb Conc 31.3 g/dL (32-36); Mean Corpuscular Hgb 29.4 pg (27.0-32.0); Mean Platelet Vol. 11.1 fl (6.2-12.0); Monocyte# 0.53 X10^3/uL; Monocyte% 7.2 % (0-10); NRBC Flagged by Analyzer 0 % (0-5); Neutrophil # 4.64 X10^3/uL (2.7-7.7); Neutrophil % 62.7 % (47-70); Platelet Count 291 K/mm3 (150-450); RBC Distribution Width CV 12.6 % (11.6-14.6); RBC Distribution Width SD 43.3 fl (35.1-43.9); Red Blood Count 4.66 M/mm3 (4.2-5.4); White Blood Count 7.4 K/mm3 (4.4-11.0)
[2023-08-30 13:01] LABS: Vitamin B12 408 pg/mL (211-911)
[2023-08-30 13:22] LABS: ALB/GLOB Ratio 1.2 RATIO (0.9-2.4); AST(SGOT) 13 U/L (15-37); Alanine Aminotransfer ALT/SGPT 30 U/L (13-56); Albumin, Serum 3.8 g/dL (3.2-5.0); Alkaline Phosphatase 42 U/L (45-117); Anion Gap 5 (5-15); BUN 16 mg/dL (7-18); BUN/Creat Ratio 22.6 RATIO (10-20); Calcium,Total 8.8 mg/dL (8.5-10.1); Chloride 104 mmol/L (98-107); Cholesterol 208 mg/dL (200); Creatinine, Serum 0.71 mg/dL (0.55-1.02); EST Glomerular Filtration Rate 88 mL/min (>60); Est Glom Filt Rate - Afr Amer 107 mL/min (>60); Ferritin 252 ng/mL (8-252); Free T3 2.7 pg/mL (2.18-3.98); Globulin 3.2 g/dL (2.2-4.2); Glucose 100 mg/dL (74-106); High Density Lipoprotein 62 mg/dL; Iron 85 ug/dL (50-170); Potassium 3.6 mmol/L (3.5-5.1); Sodium Level 136 mmol/L (136-145); T4 Free Direct 0.95 ng/dL (0.76-1.46); Thyroid Stim Hormone (TSH) 1.17 uIU/mL (0.358-3.74); Triglycerides 74 mg/dL; Very Low Density Lipoprotein 15 mg/dL (5-40)
== END | disposition home or self-care (01) ==
PROVIDERS: PCP Family Medicine; Referring Provider Family Medicine; Visit Provider Family Medicine
DX: Z12.31 Encounter for screening mammogram for malignant neoplasm of breast (principal); E05.90 Thyrotoxicosis, unspecified without thyrotoxic crisis or storm; E53.8 Deficiency of other specified B group vitamins; D50.9 Iron deficiency anemia, unspecified; E78.5 Hyperlipidemia, unspecified; Z51.81 Encounter for therapeutic drug level monitoring
CPT/HCPCS: 36415; 77063; 77067; 80053; 80061; 82607; 82728; 83540; 84439; 84443; 84481; 85025

== ENCOUNTER → 2024-09-12 | Outpatient (CLI) | payer BC, SELFPAY ==
[2024-09-12 10:52] LABS: Absolute Lymphocyte Count 2.37 X10^3/uL (0.83-4.51); Absolute Neutrophil Count 5.5 X10^3/uL (2.0-7.7); Basophil# 0.04 X10^3/uL; Basophil% 0.5 % (0-1); Eosinophil# 0.11 X10^3/uL; Eosinophils% 1.3 % (0-5); Hemoglobin 14.1 g/dL (12.0-15.0); Lymphocyte # 2.37 X10^3/ul (0.83-4.51); Lymphocyte % 27.5 % (19-41); Mean Corp Hgb Conc 32.8 g/dL (32-36); Mean Corpuscular Hgb 30.3 pg (27.0-32.0); Mean Corpuscular Volume 92.3 fL (81-99); Mean Platelet Vol. 10.5 fl (6.2-12.0); Monocyte# 0.55 X10^3/uL; Monocyte% 6.4 % (0-10); NRBC Flagged by Analyzer 0 % (0-5); Neutrophil # 5.53 X10^3/uL (2.7-7.7); Platelet Count 321 K/mm3 (150-450); RBC Distribution Width CV 12.3 % (11.6-14.6); RBC Distribution Width SD 42.1 fl (35.1-43.9); Red Blood Count 4.66 M/mm3 (4.2-5.4); White Blood Count 8.6 K/mm3 (4.4-11.0)
[2024-09-12 11:12] LABS: ALB/GLOB Ratio 1.2 RATIO (0.9-2.4); AST(SGOT) 14 U/L (15-37); Alanine Aminotransfer ALT/SGPT 27 U/L (13-56); Alkaline Phosphatase 48 U/L (45-117); Anion Gap 5 (5-15); BUN 22 mg/dL (7-18); BUN/Creat Ratio 30.4 RATIO (10-20); Calcium,Total 9.4 mg/dL (8.5-10.1); Chloride 103 mmol/L (98-107); Cholesterol 191 mg/dL (200); Creatinine, Serum 0.72 mg/dL (0.55-1.02); EST Glomerular Filtration Rate 86 mL/min (>60); Est Glom Filt Rate - Afr Amer 104 mL/min (>60); Ferritin 269 ng/mL (8-252); Free T3 2.6 pg/mL (2.18-3.98); Globulin 3.3 g/dL (2.2-4.2); Glucose 100 mg/dL (74-106); High Density Lipoprotein 68 mg/dL; Iron 102 ug/dL (50-170); Potassium 4.2 mmol/L (3.5-5.1); Protein, Total 7.3 g/dL (6.4-8.2); Sodium Level 135 mmol/L (136-145); Triglycerides 65 mg/dL; Very Low Density Lipoprotein 13 mg/dL (5-40)
[2024-09-14 08:34] LABS: Vitamin B12 837 pg/mL (211-911)
== END | disposition home or self-care (01) ==
LOC: MTLAB 10:04 → LAB 10:05
PROVIDERS: PCP Family Medicine; Referring Provider Family Medicine; Visit Provider Family Medicine
DX: E05.90 Thyrotoxicosis, unspecified without thyrotoxic crisis or storm (principal); E53.8 Deficiency of other specified B group vitamins; D50.9 Iron deficiency anemia, unspecified; Z51.81 Encounter for therapeutic drug level monitoring; E78.5 Hyperlipidemia, unspecified
CPT/HCPCS: 36415; 80053; 80061; 82607; 82728; 83540; 84439; 84443; 84481; 85025

== ENCOUNTER 2024-09-25 13:17 | Outpatient (CLI) | payer BC, SELFPAY ==
--- NOTE | 2024-09-25 13:20 | BD_ITS ---
STUDY: DUAL ENERGY X-RAY ABSORPTIOMETRY / DXA REASON FOR EXAM: Female, 64 years old. 733.00OsteoporosisBONE DENSITY REASON FOR EXAM TECHNIQUE: Bone Mineral Density (BMD) measurements of lumbar spine and bilateral hips were obtained. COMPARISON: None. FINDINGS: Lumbar Spine (L1-L4): g/cm2 (1.083) / T-score (0.6) / Z-score (2.4) Findings are suggestive of normal bone density with a low fracture risk. Left Femur Total: g/cm2 (1.085) / T-score (1.2) / Z-score (2.4) Left Femoral Neck: g/cm2 (0.902) / T-score (0.5) / Z-score (2.0) Right Femur Total: g/cm2 (1.128) / T-score (1.5) / Z-score (2.8) Right Femoral Neck: g/cm2 (0.914) / T-score (0.6) / Z-score (2.1) BD/Dexa Bone Density Study IMPRESSION: The patient is considered normal as outlined below according to World Mendez Organization (WHO) criteria with a low fracture risk. Reference Information: The T-score is the number of standard deviations above or below the standard which is normal for young adults at their peak bone mineral density. The World Health Organization (WHO) interprets the T-scores as follows: Above -1 Normal bone density Between -1 and -2.5 Osteopenia Equal to / or below -2.5 Osteoporosis As a practical clinical guideline, osteopenia may be graded as follows: Mild -1 through -1.5 Moderate -1.6 through -2.0 Severe -2.1 through -2.4 The Z-score is the number of standard deviations above or below age-matched controls. A Z-score of less than -1.5 would be considered abnormal. References: 1. NIH Osteoporosis and Related Bone Diseases www osteo.org 2. International Society for Clinical Densitometry www iscd.org 3. National Osteoporosis Foundation www nof.org Electronically Signed: Phoenix Rawls MD at 15:07 EST ,
--- NOTE | 2024-09-25 13:51 | BI_ITS ---
MAMMOGRAPHY - BILATERAL SCREENING REASON FOR EXAM: Female, 64 years old. Routine annual screening examination. PERTINENT HISTORY: Grandmother with breast cancer. Aunt with breast cancer. History of prior right ultrasound-guided breast biopsy. TECHNIQUE: Digital bilateral breast kay (3D mammographic acquisition) in the CC and MLO projections. 2-D mediolateral oblique (MLO) and craniocaudad (CC) views of both breasts were obtained. CAD: Full Field Digital Mammography with Computer Added Detection was performed. COMPARISON: Comparison is made with prior study dated August 30, 2023 and August 16, 2022. FINDINGS: Breast Composition: The breasts are heterogeneously dense, which may obscure small masses. There are no dominant masses or suspicious calcifications. A tissue clip marker is seen in the retroareolar region of the right breast. Stable benign appearing bilateral axillary lymph nodes. No other significant abnormalities are identified. There has been no significant change since the prior study. BI/SCRN MAMM (CAD)W/KAY BILAT IMPRESSION: Stable bilateral screening mammogram. Yearly follow-up mammogram recommended. (A) ASSESSMENT CATEGORY: BIRADS Category 2: Benign. A letter regarding these results will be sent to the patient by the facility within 30 days. Approximately 10% of breast cancers are not detected by mammography. A normal mammogram should not delay biopsy of a clinically suspicious abnormality. [id number] Electronically Signed: Phoenix Rawls MD at 14:30 EST ,
== END 2024-09-25 23:59 | disposition home or self-care (01) ==
PROVIDERS: PCP Family Medicine; Referring Provider Family Medicine; Visit Provider Family Medicine
DX: Z13.820 Encounter for screening for osteoporosis (principal)
CPT/HCPCS: 77080

== ENCOUNTER → 2025-04-10 | Outpatient (CLI) | payer OTHER, SELFPAY ==
--- OUTSIDE RECORDS SUMMARY | 2025-04-10 11:03 | XMS RPT_ITS | CCD ---
Author Organization [facility] Care Team Providers [facility] [employer] Driver Name Role Phone Blaze [employer]ER, Ximena N Unavailable Unavailab le Blaze [employer] TE[employer]ER, Ximena N Unavailable Unavailab le Blaze [employer] TE[employer]ER, Ximena N Unavailable Unavailab le Blaze [employer] TE[employer]ER, Ximena N Unavailable Unavailab le MALYS, ILDA A Unavailable Unavailable MALYS, ILDA A Unavailable Unavailable MALYS, ILDA A. Unavailable Unavailable CHELSIE MANRIQUE Unavailable Unavailable Malys DO, Ilda Howard Unavailable Malys DO, Ilda Howard Primary Care Provider [phone] CLAUDIO ELLIOTT Admitting Unavailable CLAUDIO ELLIOTT Attending Unavailable MALYS, ILDA HOWARD Primary Care Unavailable CLAUDIO ELLIOTT Attending Unavailable MALYS, ILDA HOAWRD Primary Care Unavailable MALYS, ILDA HOWARD Primary Care Unavailable CLAUDIO ELLIOTT Attending Unavailable MALYS, ILDA HOWARD Primary Care Unavailable Malys, Ilda Attending Unavailable Malys, Ilda Referring Unavailable Malys, Ilda Primary Care Unavailable Malys, Ilda Primary Care Unavailable Julianne Page Attending Unavailable Malys, Ilda Referring Unavailable Malys, Ilda Primary Care Unavailable Malys, Ilda Attending Unavailable Malys, Ilda Attending Unavailable Malys, Ilda Referring Unavailable Malys, Ilda Primary Care Unavailable Medications Current Medications Medication Drug Class(es) Dates Sig (Normalized) Sig (Original) acetaminophen 325 mg / oxyCODONE hydrochloride 5 mg oral tablet (15 sources) Opioid Agonist Start: 04-13-2024 take 1 tablet by mouth every six hours for pain oxyCODONE-acetami nophen (Percocet) 5-325 mg tablet Indications: Brow ptosis, bilateral Take 1 tablet by mouth every 6 hours if needed for severe pain (7 - 10). 5 tablet 04/13/2024 Active Start: 09-08-2019 End: 09-17-2019 take 1 tablet by mouth every six hours as needed Oxycodone-Acetaminophen Discontinued 1 TABLET PO EVERY 6 HOURS NEEDED 09 03September 08, 2019 September 17, 2019 12:08am 20 tabs (twenty) Start: 05-20-2014 take 1 tablet by ramos four times daily as needed for pain PERCOCET 5-325 MG TABS One tablet by ramos four times daily as needed for pain OXYCODONE-ACETAMINOPHEN [id number] Michael Presley MD Start: 05-20-2014 End: 05-28-2014 take 1 tablet by mouth four times daily as needed for pain PERCOCET 5-325 MG TABS One tablet by ramos four times daily as needed for pain OXYCODONE-ACETAMINOPHEN [id number] Maryjo Vargas LPN docusate sodium 100 mg oral capsule (1 source) Start: 04-13-2024 take 1 capsule by mouth twice daily docusate sodium (Colace) 100 mg capsule Indications: Brow ptosis, bilateral Take 1 capsule (100 mg) by mouth 2 times a day. 60 capsule 04/13/2024 Active Start: 04-13-2024 take 1 capsule by mo [facility] twice daily docusate sodium (Colace) 100 mg capsule Indications: Brow ptosis, bilateral Take 1 capsule (100 mg) by mouth 2 times a day. 60 capsule 04/13/2024 Active hydroCHLOROthiazide 12.5 mg / lisinopril 20 mg oral tablet (10 sources) Thiazide Diuretic, Angiotensin Converting Enzyme Inhibitor Start: 02-13-2019 take 1 tablet by mouth once daily Lisinopril-Hydrochlorothiazide Active 1 TABLET PO DAILY February 12, 2019 11:00pm Start: 11-10-2009 take 1 tablet by ramos th once daily LISINOPRIL-HYDROCHLOROTHIAZIDE 20-25 MG TABS One tablet by mouth daily LISINOPRIL-HYDROCHLOROTHIAZIDE [id number] Luciana Gomez MD Multivitamin With Minerals (6 sources) Start: 09-01-2019 Multivitamin W ith Minerals Active 1 EACH PO DAILY September 01, 2019 12:00am Start: 09-01-2019 Multivitamin W ith Minerals Active 1 EACH PO DAILY September 01, 2019 1:00am ondansetron 4 mg oral tablet (1 source) Serotonin-3 Receptor Antagonist Start: 04-13-2024 End: 04-20-2024 take 1 tablet by mouth every eight hours as needed for nausea and nausea ondansetron (Zofran) 4 mg tablet Indications: Nausea Take 1 tablet (4 mg) by mouth every 8 hours if needed for nausea or vomiting for up to 7 days. 10 tablet 04/13/2024 04/20/2024 Active 24 hr oxybutynin chloride 5 mg extended release oral tablet (2 sources) Cholinergic Muscarinic Antagonist Start: 08-22-2022 take 1 tablet by mouth once daily oxybutynin XL (Ditropan-XL) 5 mg 24 hr tablet Take 1 tablet (5 mg) by mouth once daily. 08/22/2022 Active spironolactone 25 mg oral tablet (1 source) Aldosterone Antagonist take 1 tablet by mouth once daily spironolactone (Aldactone) 25 mg tablet Take 1 tablet (25 mg) by mouth once daily. Active Completed/Discontinued Medications Medication Drug Class(es) Dates Sig (Normalized) Sig (Original) amoxicillin 875 mg / clavulanate 125 mg oral tablet (4 sources) Penicillin-class Antibacterial Start: 02-19-2017 End: 03-01-2017 AMOXICILLIN-POT CLAVULANATE 875-125 MG TABS Take 1 tab every 12 hours AMOXICILLIN-POT CLAVULANATE [id number] Vishal GARCÍA aspirin 81 mg delayed release oral tablet (12 sources) Platelet Aggregation Inhibitor, Nonsteroidal Anti-inflammatory Drug Start: 03-02-2019 End: 06-24-2019 take 81 mg by mouth once daily Aspirin Discontinued 81 MG PO DAILY March 01, 2019 11:00pm June 24, 2019 7:45am Start: 02-13-2019 End: 02-16-2019 take 325 mg by mouth once daily Aspirin Discontinued 325 MG PO DAILY February 12, 2019 11:00pm February 16, 2019 12:12pm azithromycin 250 mg oral tablet (8 sources) Macrolide Antimicrobial Start: 04-24-2011 End: 09-25-2011 take 2 tablets by mouth once daily, then take 1 tablet by mouth once daily, then take 2-5 tablets by mouth ZITHROMAX 250 MG TABS two tablets by mouth on day one, and one tablets daily one day 2-5 AZITHROMYCIN [id number] Luciana Gomez MD benzonatate 200 mg oral capsule (6 sources) Non-narcotic Antitussive Start: 12-11-2018 End: 12-11-2018 take 200 mg by mouth three times daily Benzonatate Discontinued 200 MG PO THREE TIMES A DAY December 11, 2018 12:00am December 11, 2018 6:05pm calcium (4 sources) Phosphate Binder, Calcium CALCIUM 500 MG TABS 1 tab daily CALCIUM [id number] Maryjo Armenta Sam KIM calcium carbonate 1250 mg chewable tablet (12 sources) Start: 02-13-2019 End: 02-16-2019 take 1 tablet by mouth once daily Calcium Carbonate (Calcium 500) 500 mg calcium (1,250 mg) tablet,chewable Discontinued 500 MG PO DAILY February 12, 2019 11:00pm February 16, 2019 12:11pm Start: 05-12-2014 End: 12-11-2018 take 500 mg by mouth twice daily at mealtime Calcium Carbonate Discontinued 500 MG PO TWICE DAILY WITH MEALS May 11, 2014 11:00pm December 11, 2018 3:22pm calcium chloride 0.0014 meq/ml / potassium chloride 0.004 meq/ml / sodium chloride 0.103 meq/ml / sodium lactate 0.028 meq/ml injectable solution (1 source) Start: 04-13-2024 End: 04-13-2024 take 100 mL intravenously every hour 100 mL/hr, intravenous, Continuous, Starting on Sat04/13/24 at 1030, Recovery (only) cefadroxil 500 mg oral capsule (14 sources) Cephalosporin Antibacterial Start: 09-08-2019 End: 09-23-2019 take 500 mg by mouth twice daily Cefadroxil Discontinued 500 MG PO TWICE A DAY September 08, 2019 12:00am September 23, 2019 10:50am Start: 05-20-2014 End: 05-28-2014 take 1 tablet by mouth twice daily CEFADROXIL 500 MG CAPS One tablet by mouth twice daily CEFADROXIL [id number] Michael Presley MD cholecalciferol 0.025 mg oral capsule (12 sources) Vitamin D Start: 02-13-2019 End: 02-16-2019 take 1 capsule by mouth once daily cholecalciferol (vitamin D3) 1,000 unit capsule Discontinued 1000 UNIT PO DAILY February 12, 2019 11:00pm February 16, 2019 12:11pm Start: 08-08-2016 End: 12-11-2018 take 1000 [IU] by mouth once daily Cholecalciferol (Vitamin D3) Discontinued 1000 UNIT PO DAILY August 07, 2016 11:00pm December 11, 2018 3:22pm GUAIFENESIN-CODEINE (8 sources) Opioid Agonist Start: 09-23-2013 End: 01-06-2014 take 5 mL by mouth every four to six hours as needed for cough CHERATUSSIN AC 100-10 MG/5ML SYRP 5ml by mouth every 4-6hr as needed cough, avoid driving or operating machine under the influence of medication. GUAIFENESIN-CODEINE [id number] Silvia Sung Start: 09-23-2013 take 5 mL by mouth e very four to six hours as needed for cough CHERATUSSIN AC 100-10 MG/5ML SYRP 5ml by mouth every 4-6hr as needed cough, avoid driving or operating machine under the influence of medication. GUAIFENESIN-CODEINE [id number] Luciana Gomez MD dextromethorphan hydrobromide 2 mg/ml oral solution (6 sources) Uncompetitive I-lknpho-B-aspartate Receptor Antagonist, Sigma-1 Agonist Start: 12-11-2018 End: 02-13-2019 take 10 mg by mouth every six hours Dextromethorphan Hbr Discontinued 10 MG PO EVERY 6 HOURS 118 December 11, 2018 12:00am February 13, 2019 10:09am estradiol 0.5 mg oral tablet (4 sources) Estrogen Start: 04-03-2010 End: 05-03-2010 take 1 tablet by mouth once daily ESTRACE 0.5 MG TABS One tablet by mouth daily ESTRADIOL [id number] Luciana Gomez MD guaiFENesin (8 sources) Start: 12-07-2009 End: 01-26-2010 GUIATUSS AC 100-10 MG/5ML SYRP 10ml every 6hr as needed cough GUAIFENESIN-CODEINE [id number] Rupa Berrios MA Start: 12-07-2009 GUIATUSS AC 10 0-10 MG/5ML SYRP 10ml every 6hr as needed cough GUAIFENESIN-CODEINE [id number] Luciana Gomez MD 1 ml HYDROmorphone hydrochloride 0.2 mg/ml prefilled syringe (1 source) Opioid Agonist Start: 04-13-2024 End: 04-13-2024 0.2 mg, intravenous, Every 5 min PRN, pain moderate (4-6), first line, Starting on 04/13/24 at 1013, Recovery (only), Max total of 4 mg regardless of dose. IMIQUIMOD (8 sources) Start: 07-02-2014 ALDARA 5 % CRE A apply daily at night 5 days per week for 6 weeks IMIQUIMOD [id number] Michael Presley MD Start: 07-02-2014 End: 04-15-2015 ALDARA 5 % CREA apply daily at night 5 days per week for 6 weeks IMIQUIMOD [id number] Chelsie Manrique DO lactobacillus (8 sources) Start: 05-20-2014 End: 05-28-2014 take 1 tablet by mouth twice daily ACIDOPHILUS PROBIOTIC TABS One tablet by mouth twice daily LACTOBACILLUS [id number] Maryjo Vargas LPN Start: 05-20-2014 take 1 tablet by ramos th twice daily ACIDOPHILUS PROBIOTIC TABS One tablet by mouth twice daily LACTOBACILLUS [id number] Michael Presley MD levoFLOXacin 750 mg oral tablet (6 sources) Quinolone Antimicrobial Start: 08-08-2016 End: 12-11-2018 take 750 mg by mouth once daily Levofloxacin Discontinued 750 MG PO DAILY August 07, 2016 11:00pm December 11, 2018 3:22pm lisinopril 10 mg oral tablet (12 sources) Angiotensin Converting Enzyme Inhibitor Start: 05-12-2014 End: 02-13-2019 take 20 mg by mouth once daily Lisinopril Discontinued 20 MG PO DAILY May 11, 2014 11:00pm February 13, 2019 10:09am Start: 09-25-2011 take 1 tablet by ramos th once daily LISINOPRIL 20 MG TABS One tablet by mouth daily LISINOPRIL [id number] Chelsie Manrique DO methIMAzole 5 mg oral tablet (16 sources) Thyroid Hormone Synthesis Inhibitor Start: 07-03-2013 End: 12-14-2013 take 1 tablet by mouth once daily METHIMAZOLE 5 MG TABS One tablet by mouth daily METHIMAZOLE [id number] Luciana Gomez MD Start: 09-25-2011 take 1 tablet by ramos th twice daily METHIMAZOLE 10 MG TABS One tablet by mouth twice daily METHIMAZOLE [id number] Luciana Gomez MD Start: 04-03-2011 take 2 tablets by mo [facility] twice daily METHIMAZOLE 5 MG TABS Two tablets by mouth twice daily METHIMAZOLE [id number] Ashley Rowe metoprolol tartrate 25 mg oral tablet (8 sources) beta-Adrenergic Angel Start: 07-28-2010 End: 09-25-2011 take 1 tablet by mouth twice daily METOPROLOL TARTRATE 25 MG TABS One tablet by mouth twice daily METOPROLOL TARTRATE [id number] Luciana Gomez MD MULTIPLE VITAMIN (3 sources) Start: 02-19-2017 MULTIVITAMINS CAPS as directed MULTIPLE VITAMIN [id number] Ximena Thakur LPN naproxen 500 mg oral tablet (8 sources) Nonsteroidal Anti-inflammatory Drug Start: 05-02-2010 End: 09-23-2013 take 1 tablet by mouth twice daily at mealtime as needed for pain NAPROXEN 500 MG TABS One tablet by mouth twice daily take with food as needed knee pain NAPROXEN [id number] Luciana Gomez MD nitrofurantoin, macrocrystals 25 mg / nitrofurantoin, monohydrate 75 mg oral capsule (4 sources) Nitrofuran Antibacterial Start: 01-24-2015 End: 01-31-2015 take 1 tablet by mouth twice daily NITROFURANTOIN MACROCRYSTAL 100 MG CAPS One tablet by mouth twice daily NITROFURANTOIN MACROCRYSTAL [id number] Luciana Gomez MD norethindrone acetate 5 mg oral tablet (8 sources) Progestin Start: 12-06-2009 End: 01-26-2010 take 1 tablet by mouth once daily AYGESTIN 5 MG TABS One tablet by mouth daily NORETHINDRONE ACETATE [id number] Rupa Berrios MA potassium (3 sources) Start: 02-19-2017 POTASSIUM TABS as directed POTASSIUM TABS [id number] Ximena Thakur LPN microencapsulated potassium chloride 20 meq extended release oral tablet (18 sources) Start: 08-08-2016 End: 12-11-2018 take 20 mEq by mouth once daily Potassium Chloride Discontinued 20 MEQ PO DAILY August 07, 2016 11:00pm December 11, 2018 3:22pm Start: 11-10-2009 End: 09-25-2011 take 1 tablet by mouth once daily POTASSIUM CHLORIDE SANYA ER 20 MEQ CR-TABS One tablet by mouth daily POTASSIUM CHLORIDE SANYA CR [id number] Georgia Cho RN predniSONE 20 mg oral tablet (4 sources) Corticosteroid Start: 03-14-2016 End: 03-26-2016 PREDNISONE 20 MG TABS 3 tabs for 3 days, 2 tabs x 3 days, 1 tab x 3 days, 1/2 tab x 4 days PREDNISONE [id number] Chelsie Manrique DO sulfamethoxazole 800 mg / trimethoprim 160 mg oral tablet (8 sources) Dihydrofolate Reductase Inhibitor Antibacterial, Sulfonamide Antimicrobial Start: 03-23-2016 End: 04-26-2016 take 1 tablet by mouth twice daily SULFAMETHOXAZOLE -TRIMETHOPRIM 800-160 MG TABS One tablet by mouth twice daily for 7 days SULFAMETHOXAZOLE -TRIMETHOPRIM [id number] Chelsie Harvinder Hilaria DO ZOSTER VACCINE LIVE (8 sources) Start: 02-02-2014 End: 05-04-2014 ZOSTAVAX 00347 UNT/0.65ML SUSR 1 dose SC x 1 ZOSTER VACCINE LIVE [id number] Maryjo Vargas LPN Start: 02-02-2014 ZOSTAVAX 36936 UNT/0.65ML SUSR 1 dose SC x 1 ZOSTER VACCINE LIVE [id number] Luciana Gomez MD Start: 02-02-2014 End: 05-04-2014 ZOSTAVAX 61849 UNT/0.65ML SO LR 1 dose SC x 1 ZOSTER VACCINE LIVE [id number] Maryjo Vargas JULIO Start: 02-02-2014 ZOSTAVAX 65631 UNT/0.65ML SOLR 1 dose SC x 1 ZOSTER VACCINE LIVE [id number] Luciana Gomez MD Problems Active Problems Problem Classification Problem Date Documented Date Episodic/Chronic Cardiac dysrhythmias (8 sources) Sinus tachycardia; Translations: [Tachycardia, unspecified] Onset: 07-28-2010 Resolved: 04-15-2015 04-15-2015 Chronic Chronic obstructive pulmonary disease and bronchiectasis (6 sources) Bronchitis; Translations: [Bronchitis, not specified as acute or chronic] 06-25-2019 Episodic Essential hypertension (10 sources) Hypertensive disorder; Translations: [Essential (primary) hypertension] Onset: 11-10-2009 11-10-2009 Chronic Nonmalignant breast conditions (10 sources) Other abnormal and inconclusive findings on diagnostic imaging of breast; Translations: [Breast lump] Onset: 02-19-2013 03-06-2013 Episodic Nutritional deficiencies (1 source) Iron deficiency; Translations: [Iron deficiency] Onset: 03-24-2025 Episodic Other connective tissue disease (6 sources) Triggering of digit; Translations: [Trigger finger, right middle finger] 09-07-2019 Episodic Other diseases of bladder and urethra (4 sources) Bladder muscle dysfunction - overactive; Translations: [Overactive bladder] Onset: 04-27-2015 04-27-2015 Chronic Other eye disorders (5 sources) Dermatochalasis of right upper eyelid; Translations: [Dermatochalasis] Onset: 12-05-2023 12-05-2023 Episodic Other eye disorders (5 sources) Ptosis of bilateral eyebrows; Translations: [Brow ptosis, bilateral] Onset: 12-05-2023 12-05-2023 Episodic Other eye disorders (2 sources) Dermatochalasis of left upper eyelid; Translations: [Dermatochalasis of left upper eyelid] Onset: 04-11-2024 Episodic Other eye disorders (1 source) Brow ptosis, bilateral; Translations: [Brow ptosis, bilateral] Onset: 04-11-2024 Episodic Other nutritional; endocrine; and metabolic disorders (8 sources) Obesity; Translations: [Body mass index 30+ - obesity] Onset: 11-10-2009 11-10-2009 Chronic Other upper respiratory infections (20 sources) Pharyngitis; Translations: [Acute upper respiratory infection] Onset: 12-04-2009 Resolved: 12-14-2013 04-24-2011 Episodic Thyroid disorders (15 sources) Hyperthyroidism; Translations: [Thyrotoxicosis, unspecified without thyrotoxic crisis or storm] Onset: 07-14-2010 Resolved: 04-15-2015 04-15-2015 Chronic Unclassified (7 sources) Encounter for screening for malignant neoplasm of colon; Translations: [Encounter for screening for osteoporosis] Onset: 08-13-2012 08-13-2012 Episodic Unclassified (4 sources) Screening mammography ; Translations: [Encounter for screening mammogram for malignant neoplasm of breast] Onset: 11-04-2014 11-04-2014 Unclassified (4 sources) General examination of patient ; Translations: [Encounter for other general examination] Onset: 07-03-2013 07-03-2013 Unclassified (2 sources) Post-op Visit; Translations: [Post-op Visit] Onset: 05-28-2024 Unclassified (2 sources) Eyelid Lesion; Translations: [Eyelid Lesion] Onset: 12-05-2023 Past or Other Problems Problem Classification Problem Date Documented Date Episodic/Chronic Allergic reactions (8 sources) Contact dermatitis; Translations: [Other skin changes due to chronic exposure to nonionizing radiation] Onset: 05-20-2014 03-23-2016 Episodic Calculus of urinary tract (4 sources) Kidney stone; Translations: [Calculus of kidney] Onset: 04-19-2015 04-19-2015 Episodic Conditions associated with dizziness or vertigo (8 sources) Dizziness and giddiness; Translations: [Dizziness and giddiness] Onset: 09-25-2011 Resolved: 04-15-2015 09-25-2011 Episodic Fluid and electrolyte disorders (8 sources) Hypokalemia; Translations: [Hypokalemia] Onset: 11-10-2009 Resolved: 05-02-2010 05-02-2010 Episodic Genitourinary symptoms and ill-defined conditions (8 sources) Microscopic hematuria; Translations: [Other microscopic hematuria] Onset: 04-15-2015 Resolved: 04-19-2015 04-15-2015 Episodic Medical examination/evaluatio n (8 sources) Encounter for other preprocedural examination; Translations: [Encounter for other preprocedural examination] Onset: 01-26-2010 Resolved: 04-15-2015 04-15-2015 Episodic Nausea and vomiting (1 source) Nausea; Translations: [Nausea] 04-13-2024 Episodic Neoplasms of unspecified nature or uncertain behavior (20 sources) Neoplasm of unspecified behavior of bone, soft tissue, and skin; Translations: [Neoplasm of unspecified behavior of bone, soft tissue, and skin] Onset: 05-04-2014 Resolved: 04-15-2015 04-15-2015 Episodic Other aftercare (8 sources) Encounter for other specified surgical aftercare; Translations: [Encounter for other specified surgical aftercare] Onset: 05-20-2014 Resolved: 04-15-2015 05-23-2014 Episodic Other and unspecified benign neoplasm (4 sources) Benign neoplasm of skin of face; Translations: [Benign neoplasm of skin of other and unspecified parts of face] Onset: 05-20-2014 05-31-2014 Episodic Other connective tissue disease (8 sources) Hand pain; Translations: [Acquired trigger finger] Onset: 02-19-2017 02-19-2017 Episodic Other lower respiratory disease (8 sources) Cough; Translations: [Cough] Onset: 04-24-2011 Resolved: 12-14-2013 04-24-2011 Episodic Other non-epithelial cancer of skin (4 sources) Personal history of other malignant neoplasm of skin; Translations: [Personal history of other malignant neoplasm of skin] Onset: 05-04-2014 05-04-2014 Episodic Other non-traumatic joint disorders (8 sources) Knee pain; Translations: [Pain in right knee] Onset: 05-02-2010 Resolved: 04-15-2015 05-02-2010 Episodic Other nutritional; endocrine; and metabolic disorders (4 sources) H/O: endocrine disorder; Translations: [Personal history of other endocrine, nutritional and metabolic disease] Onset: 04-26-2016 04-26-2016 Episodic Other skin disorders (16 sources) Eruption; Translations: [Disorder of skin] Onset: 08-13-2012 Resolved: 03-26-2016 03-23-2016 Episodic Unclassified (12 sources) Postmenopausal state; Translations: [Dyssomnia] Onset: 01-26-2010 Resolved: 04-15-2015 04-03-2010 Episodic Unclassified (4 sources) Adult health examination ; Translations: [Encounter for general adult medical examination without abnormal findings] Onset: 04-26-2016 Resolved: 05-03-2016 04-26-2016 Unclassified (2 sources) Onset: 12-05-2023 12-05-2023 Results Test Name Value Interpretation Reference Range Facility Dexa Bone Density Studyon Dexa Bone Density Study [facility] Imaging Services [address], [place] [address] Dexa Bone Density Study MR#: [id number] Acct: [id number] Name: YANCY SANCHEZ Rep #: [id number] : 1960 F 64 From: [place] uy MD PCP: Dr. Ilda Yeager DO Status: [facility] Study: Dexa Bone Density Study Date of Exam: 09/25/24 Exam# [id number] Ordering Dr: Ilda Yeager DO [id number] STUDY: DUAL ENERGY X-RAY ABSORPTIOMETRY / DXA REASON FOR EXAM: Female, 64 years old. 733.00OsteoporosisBO NE DENSITY REASON FOR EXAM TECHNIQUE: Bone Mineral Density (BMD) measurements of lumbar spine and bilateral hips were obtained. COMPARISON: None. FINDINGS: Lumbar Spine (L1-L4): g/cm2 (1.083) / T-score (0.6) / Z-score (2.4) Findings are suggestive of normal bone density with a low fracture risk. Left Femur Total: g/cm2 (1.085) / T-score (1.2) / Z-score (2.4) Left Femoral Neck: g/cm2 (0.902) / T-score (0.5) / Z-score (2.0) Right Femur Total: g/cm2 (1.128) / T-score (1.5) / Z-score (2.8) Right Femoral Neck: g/cm2 (0.914) / T-score (0.6) / Z-score (2.1) BD/Dexa Bone Density Study IMPRESSION: The patient is considered normal as outlined below according to World Mendez Organization (WHO) criteria with a low fracture risk. Reference Information: The T-score is the number of standard deviations above or below the standard which is normal for young adults at their peak bone mineral density. The World Health Organization (WHO) interprets the T-scores as follows: Above -1 Normal bone density Between -1 and -2.5 Osteopenia Equal to / or below -2.5 Osteoporosis As a practical clinical guideline, osteopenia may be graded as follows: Mild -1 through -1.5 Moderate -1.6 through -2.0 Severe -2.1 through -2.4 The Z-score is the number of standard deviations above or below age-matched controls. A Z-score of less than -1.5 would be considered abnormal. References: 1. NIH Osteoporosis and Related Bone Diseases www osteo.org 2. International Society for Clinical Densitometry www iscd.org 3. National Osteoporosis Foundation www nof.org Electronically Signed: Phoenix Rawls MD at 15:07 EST , CC: Dr. Ilda Yeager, DO [employer] Principal: Signed Normal [facility] SCRN MAMM (CAD)W/KAY Moreno n 09-25-2024 SCRN MAMM (CAD)W/KAY DAYRONAT [facility] Imaging Services [address] [place], [place] [address] SCRN MAMM (CAD)W/KAY DAYRONTANIA MR#: [id number] Acct: [id number] Name: JOSEYANCY ALBERTINA Rep #: [id number] : 1960 F 64 From: [place] yu MD PCP: Dr. Ilda Yeager DO Status: PRE CLI Study: SCRN MAMM (CAD)W/KAY BILAT Date of Exam: 04/13 Exam# [id number] Ordering Dr: Ilda Yeager DO [id number] MAMMOGRAPHY - BILATERAL SCREENING REASON FOR EXAM: Female, 64 years old. Routine annual screening examination. PERTINENT HISTORY: Grandmother with breast cancer. Aunt with breast cancer. History of prior right ultrasound-guided breast biopsy. TECHNIQUE: Digital bilateral breast kay (3D mammographic acquisition) in the CC and MLO projections. 2-D mediolateral oblique (MLO) and craniocaudad (CC) views of both breasts were obtained. CAD: Full Field Digital Mammography with Computer Added Detection was performed. COMPARISON: Comparison is made with prior study dated August 30, 2023 and August 16, 2022. FINDINGS: Breast Composition: The breasts are heterogeneously dense, which may obscure small masses. There are no dominant masses or suspicious calcifications. A tissue clip marker is seen in the retroareolar region of the right breast. Stable benign appearing bilateral axillary lymph nodes. No other significant abnormalities are identified. There has been no significant change since the prior study. BI/SCRN MAMM (CAD)W/KAY BILAT IMPRESSION: Stable bilateral screening mammogram. Yearly follow-up mammogram recommended. (A) ASSESSMENT CATEGORY: BIRADS Category 2: Benign. A letter regarding these results will be sent to the patient by the facility within 30 days. Approximately 10% of breast cancers are not detected by mammography. A normal mammogram should not delay biopsy of a clinically suspicious abnormality. [id number] Electronically Signed: Phoenix Rawls MD at 14:30 EST , CC: Dr. Ilda Yeager DO [employer] Principal: Signed Normal [facility] SCRN MAMM (CAD)W/KAY BILAT [facility] Imaging Services [address] [place], [place] [id number] SCRN MAMM (CAD)W/KAY BILAT MR#: [id number] Acct: [id number] Name: YANCY SANCHEZ Rep #: [id number] : 1960 F 64 From: Phoenix yu MD PCP: Dr. Ilda Yeager DO Status: [facility] Study: SCRN MAMM (CAD)W/KAY BILAT Date of Exam: 04/13 Exam# [id number] Ordering Dr: Ilda Yeager DO [id number] MAMMOGRAPHY - BILATERAL SCREENING REASON FOR EXAM: Female, 64 years old. Routine annual screening examination. PERTINENT HISTORY: Grandmother with breast cancer. Aunt with breast cancer. History of prior right ultrasound-guided breast biopsy. TECHNIQUE: Digital bilateral breast kay (3D mammographic acquisition) in the CC and MLO projections. 2-D mediolateral oblique (MLO) and craniocaudad (CC) views of both breasts were obtained. CAD: Full Field Digital Mammography with Computer Added Detection was performed. COMPARISON: Comparison is made with prior study dated August 30, 2023 and August 16, 2022. FINDINGS: Breast Composition: The breasts are heterogeneously dense, which may obscure small masses. There are no dominant masses or suspicious calcifications. A tissue clip marker is seen in the retroareolar region of the right breast. Stable benign appearing bilateral axillary lymph nodes. No other significant abnormalities are identified. There has been no significant change since the prior study. BI/SCRN MAMM (CAD)W/KAY BILAT IMPRESSION: Stable bilateral screening mammogram. Yearly follow-up mammogram recommended. (A) ASSESSMENT CATEGORY: BIRADS Category 2: Benign. A letter regarding these results will be sent to the patient by the facility within 30 days. Approximately 10% of breast cancers are not detected by mammography. A normal mammogram should not delay biopsy of a clinically suspicious abnormality. [id number] Electronically Signed: Phoenix Rawls MD at 14:30 EST Reading Location ID and State: [facility] / [place] , Service support , CC: Dr. Ilda Yeager, [employer] Principal: Signed Normal [facility] Vitamin B12on 09-14-2024 Cobalamin (Vitamin B12) [Mass/Vol] 837 pg/mL Normal 211-911 [facility] Comment on above: Performed By: #### L 100.0100, L500.4050, L500.4100, L501.32532, L506.0400, L503.0105, L503.6150, L503.6550, L501.9520 ####[facility] [address] [place], [place], [id number] CBC W/Diff, Automatedon 08-22 Absolute Lymph 2.37 X10 3/uL Normal 0.83-4.51 [facility] Comment on above: Performed By: #### L 100.0100, L500.4050, L500.4100, L501.24825, L506.0400, L503.0105, L503.6150, L503.6550, L501.9520 #### [facility] [address] [place], [address] Absolute Neut 5.5 X10 3/uL Normal 2.0-7.7 [facility] Comment on above: Performed By: #### L 100.0100, L500.4050, L500.4100, L501.67312, L506.0400, L503.0105, L503.6150, L503.6550, L501.9520 #### [facility] [address] [place], [place], [phone] (911) Basophils/100 WBC (Bld) 0.5 % Normal 0-1 [facility] Comment on above: Performed By: #### L 100.0100, L500.4050, L500.4100, L501.03965, L506.0400, L503.0105, L503.6150, L503.6550, L501.9520 #### [facility] [address] [place], [address] (811) Eosinophils/100 WBC (Bld) 1.3 % Normal 0-5 [facility] Comment on above: Performed By: #### L 100.0100, L500.4050, L500.4100, L501.75153, L506.0400, L503.0105, L503.6150, L503.6550, L501.9520 #### [facility] [address] [place], [address] (313) Erythrocyte distribution width (RBC) [Ratio] 12.3 % Normal 11.6-14.6 [facility] Comment on above: Performed By: #### L 100.0100, L500.4050, L500.4100, L501.51784, L506.0400, L503.0105, L503.6150, L503.6550, L501.9520 #### [facility] [address] [place], [address] (404) Hematocrit (Bld) [Volume fraction] 43.0 % Normal 37-47 [facility] Comment on above: Performed By: #### L 100.0100, L500.4050, L500.4100, L501.08461, L506.0400, L503.0105, L503.6150, L503.6550, L501.9520 #### [facility] [address] [place], [address] Hemoglobin (Bld) [Mass/Vol] 14.1 g/dL Normal 12.0-15.0 [facility] Comment on above: Performed By: #### L 100.0100, L500.4050, L500.4100, L501.71030, L506.0400, L503.0105, L503.6150, L503.6550, L501.9520 #### [facility] [address] [place], [address] IG% 0.300 Normal 0.0-0.9 [facility] Comment on above: Result Comment: IG% - Immature Granulocytes (promyelocytes, myelocytes and metamyelocytes) > 1% indicates that a LEFT SHIFT is Present. Performed By: #### L 100.0100, L500.4050, L500.4100, L501.02275, L506.0400, L503.0105, L503.6150, L503.6550, L501.9520 #### [facility] [address] [place], [address] Lymphocytes/100 WBC (Bld) 27.5 % Normal 19-41 [facility] Comment on above: Performed By: #### L 100.0100, L500.4050, L500.4100, L501.73429, L506.0400, L503.0105, L503.6150, L503.6550, L501.9520 #### [facility] [address] [place], [address] MCH (RBC) [Entitic mass] 30.3 pg Normal 27.0-32.0 [facility] Comment on above: Performed By: #### L 100.0100, L500.4050, L500.4100, L501.35733, L506.0400, L503.0105, L503.6150, L503.6550, L501.9520 #### [facility] [address] [place], [address] MCHC (RBC) [Mass/Vol] 32.8 g/dL Normal 32-36 [facility] Comment on above: Performed By: #### L 100.0100, L500.4050, L500.4100, L501.66314, L506.0400, L503.0105, L503.6150, L503.6550, L501.9520 #### [facility] [address] [place], [address] MCV (RBC) [Entitic vol] 92.3 fL Normal 81-99 [facility] Comment on above: Performed By: #### L 100.0100, L500.4050, L500.4100, L501.75463, L506.0400, L503.0105, L503.6150, L503.6550, L501.9520 #### [facility] [address] [place], [address] Monocytes/100 WBC (Bld) 6.4 % Normal 0-10 [facility] Comment on above: Performed By: #### L 100.0100, L500.4050, L500.4100, L501.68773, L506.0400, L503.0105, L503.6150, L503.6550, L501.9520 #### [facility] [address] [place], [address] Neutrophils/100 WBC (Bld) 64.0 % Normal 47-70 [facility] Comment on above: Performed By: #### L 100.0100, L500.4050, L500.4100, L501.17378, L506.0400, L503.0105, L503.6150, L503.6550, L501.9520 #### [facility] [address] [place], [address] Nucleated RBC (Bld) [#/Vol] 0 10*3/uL Normal 0-5 [facility] Comment on above: Performed By: #### L 100.0100, L500.4050, L500.4100, L501.13831, L506.0400, L503.0105, L503.6150, L503.6550, L501.9520 #### [facility] [address] [place], [address] Platelet mean volume (Bld) [Entitic vol] 10.5 fL Normal 6.2-12.0 [facility] Comment on above: Performed By: #### L 100.0100, L500.4050, L500.4100, L501.35643, L506.0400, L503.0105, L503.6150, L503.6550, L501.9520 #### [facility] [address] [place], [address] Platelets (Bld) [#/Vol] 321 10*3/uL Normal 150-450 [facility] Comment on above: Performed By: #### L 100.0100, L500.4050, L500.4100, L501.57538, L506.0400, L503.0105, L503.6150, L503.6550, L501.9520 #### [facility] [address] [place], [address] RBC (Bld) [#/Vol] 4.66 10*6/uL Normal 4.2-5.4 [facility] Comment on above: Performed By: #### L 100.0100, L500.4050, L500.4100, L501.94467, L506.0400, L503.0105, L503.6150, L503.6550, L501.9520 #### [facility] [address] [place], [place], [phone] (916) RDW SD 42.1 fl Normal 35.1-43.9 [facility] Comment on above: Performed By: #### L 100.0100, L500.4050, L500.4100, L501.30359, L506.0400, L503.0105, L503.6150, L503.6550, L501.9520 #### [facility] [address] [place], [place], [phone] WBC (Bld) [#/Vol] 8.6 10*3/uL Normal 4.4-11.0 [facility] Comment on above: Performed By: #### L 100.0100, L500.4050, L500.4100, L501.01142, L506.0400, L503.0105, L503.6150, L503.6550, L501.9520 #### [facility] [address] [place], [place], [phone] Comprehensive Metabolic Prof [facility] 09-12-2024 Albumin [Mass/Vol] 4.0 g/dL Normal 3.2-5.0 [facility] Comment on above: Performed By: #### L 100.0100, L500.4050, L500.4100, L501.09646, L506.0400, L503.0105, L503.6150, L503.6550, L501.9520 #### [facility] [address] [place], [place], [phone] (353) Albumin/Globulin [Mass ratio] 1.2 {ratio} Normal 0.9-2.4 [facility] Comment on above: Performed By: #### L 100.0100, L500.4050, L500.4100, L501.53178, L506.0400, L503.0105, L503.6150, L503.6550, L501.9520 #### [facility] [address] [place], [address] ALK P 48 U/L Normal 45-117 [facility] Comment on above: Performed By: #### L 100.0100, L500.4050, L500.4100, L501.39241, L506.0400, L503.0105, L503.6150, L503.6550, L501.9520 #### [facility] [address] [place], [address] ALT [Catalytic activity/Vol] 27 U/L Normal 13-56 [facility] Comment on above: Performed By: #### L 100.0100, L500.4050, L500.4100, L501.05281, L506.0400, L503.0105, L503.6150, L503.6550, L501.9520 #### [facility] [address] [place], [address] AST [Catalytic activity/Vol] 14 U/L Low 15-37 [facility] Comment on above: Performed By: #### L 100.0100, L500.4050, L500.4100, L501.24142, L506.0400, L503.0105, L503.6150, L503.6550, L501.9520 #### [facility] [address] [place], [address] Bilirubin [Mass/Vol] 0.40 mg/dL Normal 0.20-1.00 [facility] Comment on above: Result Comment: For patients on eltrombopag therapy, use of Dimension [place] TBIL is not recommended. Performed By: #### L 100.0100, L500.4050, L500.4100, L501.05940, L506.0400, L503.0105, L503.6150, L503.6550, L501.9520 #### [facility] [address] [place], [address] BUN/CRE 30.4 RATIO High 10-20 [facility] Comment on above: Performed By: #### L 100.0100, L500.4050, L500.4100, L501.42823, L506.0400, L503.0105, L503.6150, L503.6550, L501.9520 #### [facility] [address] [place], [address] CA,Total 9.4 mg/dL Normal 8.5-10.1 [facility] Comment on above: Performed By: #### L 100.0100, L500.4050, L500.4100, L501.84183, L506.0400, L503.0105, L503.6150, L503.6550, L501.9520 #### [facility] [address] [place], [address] Chloride [Moles/Vol] 103 mmol/L Normal 98-107 [facility] Comment on above: Performed By: #### L 100.0100, L500.4050, L500.4100, L501.58066, L506.0400, L503.0105, L503.6150, L503.6550, L501.9520 #### [facility] [address] [place], [address] CO2 [Moles/Vol] 28.0 mmol/L Normal 21.0-32.0 [facility] Comment on above: Performed By: #### L 100.0100, L500.4050, L500.4100, L501.44361, L506.0400, L503.0105, L503.6150, L503.6550, L501.9520 #### [facility] [address] [place], [address] Creatinine [Mass/Vol] 0.72 mg/dL Normal 0.55-1.02 [facility] Comment on above: Result Comment: The validity of the calculated GFR GFRAA in patients over 70 years has not been determined. Clinical correlation is essential. Performed By: #### L 100.0100, L500.4050, L500.4100, L501.57065, L506.0400, L503.0105, L503.6150, L503.6550, L501.9520 #### [facility] [address] [place], [place], [phone] EST GFR - AA 104 mL/min Normal >60 [facility] Comment on above: Result Comment: Afri can [place] GFR Calc Performed By: #### L 100.0100, L500.4050, L500.4100, L501.63137, L506.0400, L503.0105, L503.6150, L503.6550, L501.9520 #### [facility] [address] [place], [place], [id number] GAP 5 Normal 5-15 [facility] Comment on above: Performed By: #### L 100.0100, L500.4050, L500.4100, L501.91744, L506.0400, L503.0105, L503.6150, L503.6550, L501.9520 #### [facility] [address] [place], [place], [phone] GFR/1.73 sq M.predicted among non-blacks MDRD (S/P/Bld) [Vol rate/Area] 86 mL/min/{1.73_m2} Normal >60 [facility] Comment on above: Result Comment: Non- GFR Calc Performed By: #### L 100.0100, L500.4050, L500.4100, L501.36888, L506.0400, L503.0105, L503.6150, L503.6550, L501.9520 #### [facility] [address] [place], [address] Globulin (S) [Mass/Vol] 3.3 g/dL Normal 2.2-4.2 [facility] Comment on above: Performed By: #### L 100.0100, L500.4050, L500.4100, L501.26310, L506.0400, L503.0105, L503.6150, L503.6550, L501.9520 #### [facility] [address] [place], [address] Glucose [Mass/Vol] 100 mg/dL Normal 74-106 [facility] Comment on above: Result Comment: Fast ing Glucose result from 100 to 125 mg/dL suggests IMPAIRED HOMEOSTASIS per A.D.A. criteria. Performed By: #### L 100.0100, L500.4050, L500.4100, L501.70077, L506.0400, L503.0105, L503.6150, L503.6550, L501.9520 #### [facility] [address] [place], [address] Potassium [Moles/Vol] 4.2 mmol/L Normal 3.5-5.1 [facility] Comment on above: Performed By: #### L 100.0100, L500.4050, L500.4100, L501.01308, L506.0400, L503.0105, L503.6150, L503.6550, L501.9520 #### [facility] [address] [place], [address] Sodium [Moles/Vol] 135 mmol/L Low 136-145 [facility] Comment on above: Performed By: #### L 100.0100, L500.4050, L500.4100, L501.33548, L506.0400, L503.0105, L503.6150, L503.6550, L501.9520 #### [facility] [address] [place], [address] T PROT 7.3 g/dL Normal 6.4-8.2 [facility] Comment on above: Performed By: #### L 100.0100, L500.4050, L500.4100, L501.89607, L506.0400, L503.0105, L503.6150, L503.6550, L501.9520 #### [facility] [address] [place], [address] Urea nitrogen [Mass/Vol] 22 mg/dL High 7-18 [facility] Comment on above: Performed By: #### L 100.0100, L500.4050, L500.4100, L501.52115, L506.0400, L503.0105, L503.6150, L503.6550, L501.9520 #### [facility] [address] [place], [address] Ferritinon 09-12-2024 Ferritin [Mass/Vol] 269 ng/mL High 8-252 [facility] Comment on above: Performed By: #### L 100.0100, L500.4050, L500.4100, L501.25634, L506.0400, L503.0105, L503.6150, L503.6550, L501.9520 #### [facility] [address] [place], [address] Free T3on 09-12-2024 Free T3 [Mass/Vol] 2.6 pg/mL Normal 2.18-3.98 [facility] Comment on above: Performed By: #### L 100.0100, L500.4050, L500.4100, L501.94787, L506.0400, L503.0105, L503.6150, L503.6550, L501.9520 #### [facility] [address] [place], [address] Ironon 09-12-2024 Iron [Mass/Vol] 102 ug/dL Normal 50-170 [facility] Comment on above: Performed By: #### L 100.0100, L500.4050, L500.4100, L501.43076, L506.0400, L503.0105, L503.6150, L503.6550, L501.9520 #### [facility] [address] [place], [address] Lipid Profileon 09-12-2024 Cholesterol [Mass/Vol] 191 mg/dL Normal 200 [facility] Comment on above: Result Comment: <200 mg/dL Desirable 200-240 mg/dL Borderline >240 mg/dL High Risk Performed By: #### L 100.0100, L500.4050, L500.4100, L501.35663, L506.0400, L503.0105, L503.6150, L503.6550, L501.9520 #### [facility] [address] [place], [address] Cholesterol in HDL [Mass/Vol] 68 mg/dL Normal [facility] Comment on above: Result Comment: The drugs N-Acetylcysteine and Metamizole may falsely depress this assay. Reference Range HDL <40 mg/dL Low HDL Cholesterol HDL >or= 60 mg/dL High HDL Cholesterol Performed By: #### L 100.0100, L500.4050, L500.4100, L501.11739, L506.0400, L503.0105, L503.6150, L503.6550, L501.9520 #### [facility] [address] [place], [address] Cholesterol in LDL [Mass/Vol] 110 mg/dL Normal 0-130 [facility] Comment on above: Performed By: #### L 100.0100, L500.4050, L500.4100, L501.23212, L506.0400, L503.0105, L503.6150, L503.6550, L501.9520 #### [facility] [address] [place], [place], [phone] Cholesterol in VLDL [Mass/Vol] 13 mg/dL Normal 5-40 [facility] Comment on above: Performed By: #### L 100.0100, L500.4050, L500.4100, L501.18204, L506.0400, L503.0105, L503.6150, L503.6550, L501.9520 #### [facility] [address] [place], [address] Triglyceride [Mass/Vol] 65 mg/dL Normal [facility] Comment on above: Result Comment: The drugs N-Acetylcysteine and Metamizole may falsely depress this assay. Serum Triglycerides Reference Interval Normal <150 mg/dL Borderline high 150 - 199 mg/dL High 200 - 499 mg/dL Very High > or = 500 mg/dL Performed By: #### L 100.0100, L500.4050, L500.4100, L501.90493, L506.0400, L503.0105, L503.6150, L503.6550, L501.9520 #### [facility] [address] [place], [place], [id number] T4 Free Directon 09-12-2024 T4 FREE DIRECT 1.00 ng/dL Normal 0.76-1.46 [facility] Comment on above: Performed By: #### L 100.0100, L500.4050, L500.4100, L501.82228, L506.0400, L503.0105, L503.6150, L503.6550, L501.9520 #### [facility] [address] [place], [place], [phone] Thyroid Stim Hormone (TSH)on 09-12-2024 TSH 1.410 uIU/mL Normal 0.358-3.740 [facility] Comment on above: Performed By: #### L 100.0100, L500.4050, L500.4100, L501.99283, L506.0400, L503.0105, L503.6150, L503.6550, L501.4906 #### [facility] [address] [place], [address] Absolute lymphocyte countOrd ered By: Ilda Yeager on 08-30-2023 Lymphocytes Auto (Unsp spec) [#/Vol] 1.97 10*3/uL 0.83-4.51 [facility] Basophil percentageOrdered B y: Ilda Yeager on 08-30-2023 Basophils/100 WBC (Bld) 0.4 % 0-1 [facility] Bilirubin [Mass/Vol] 0.30 mg/dL 0.20-1.00 [facility] Comment on above: For patients on eltr ombopag therapy, use of Dimension [place] TBIL is not recommended. Chloride [Moles/Vol] 104 mmol/L 98-107 [facility] Cholesterol [Mass/Vol] 208 mg/dL <200 [facility] Comment on above: <200 mg/dL Desirable 200-240 mg/dL Borderline >240 mg/dL High Risk Eosinophils/100 WBC (Bld) 2.6 % 0-5 [facility] Glucose [Mass/Vol] 100 mg/dL 74-106 [facility] Comment on above: Fasting Glucose resu lt from 100 to 125 mg/dL suggests IMPAIRED HOMEOSTASIS per A.D.A. criteria. Neutrophils (Bld) [#/Vol] 4.6 10*3/uL 2.0-7.7 [facility] Neutrophils/100 WBC (Bld) 62.7 % 47-70 [facility] Potassium [Moles/Vol] 3.6 mmol/L 3.5-5.1 [facility] Protein [Mass/Vol] 7.0 g/dL 6.4-8.2 [facility] Sodium [Moles/Vol] 136 mmol/L 136-145 [facility] Triglyceride [Mass/Vol] 74 mg/dL <199 [facility] Comment on above: The drugs N-Acetylcy steine and Metamizole may falsely depress this assay.Serum Triglycerides Reference Interval Normal <150 mg/dL Borderline high 150 - 199 mg/dL High 200 - 499 mg/dL Very High > or = 500 mg/dL WBC (Bld) [#/Vol] 7.4 10*3/uL 4.4-11.0 [facility] Blood erythrocytes count (nu mber/volume)Ordered By: Ilda Yeager on 08-30-2023 RBC (Bld) [#/Vol] 4.66 10*6/uL 4.2-5.4 [facility] Blood hemoglobin measurement (mass/volume)Ordered By: Ilda Yeager on 08-30-2023 Hemoglobin (Bld) [Mass/Vol] 13.7 g/dL 12.0-15.0 [facility] Blood lymphocytes/100 leukoc ytesOrdered By: Ilda Yeager on 08-30-2023 Lymphocytes/100 WBC (Bld) 26.6 % 19-41 [facility] Blood monocytes/100 leukocyt esOrdered By: Ilda Yeager on 08-30-2023 Monocytes/100 WBC (Bld) 7.2 % 0-10 [facility] Blood platelet mean volumeOr dered By: Ilda Yeager on 08-30-2023 Platelet mean volume (Bld) [Entitic vol] 11.1 fL 6.2-12.0 [facility] Determination of erythrocyte mean corpuscular volume (MCV)Ordered By: Ilda Yeager on 08-30-2023 MCV (RBC) [Entitic vol] 94.0 fL 81-99 [facility] Hematocrit Auto (Bld) [Volum e fraction]Ordered By: Ilda Yeager on 08-30-2023 Hematocrit (Bld) [Volume fraction] 43.8 % 37-47 [facility] Iron measurement (mass/mass) Ordered By: Ilda Yeager on 08-30-2023 Iron (Unsp spec) [Mass/Mass] 85 ug/dL 50-170 [facility] - Chemistry and C hemistry - challengeOrdered By: Ilda Yeager on 08-30-2023 ALP [Catalytic activity/Vol] 42 U/L 45-117 [facility] ALT [Catalytic activity/Vol] 30 U/L 13-56 [facility] CO2 [Moles/Vol] 27.0 mmol/L 21.0-32.0 [facility] Cobalamin (Vitamin B12) [Mass/Vol] 408 pg/mL 211-911 [facility] Free T4 [Mass/Vol] 0.95 ng/dL 0.76-1.46 [facility] Globulin (S) [Mass/Vol] 3.2 g/dL 2.2-4.2 [facility] Urea nitrogen/Creatinine [Mass ratio] 22.6 mg/mg 10-20 [facility] - Hematology and Cell countsOrdered By: Ilda Yeager on 08-30-2023 Erythrocyte distribution width (RBC) [Entitic vol] 43.3 fL 35.1-43.9 [facility] Erythrocyte distribution width (RBC) [Ratio] 12.6 % 11.6-14.6 [facility] Immature granulocytes/100 WBC (Bld) 0.500 % 0.0-0.9 [facility] Comment on above: IG% - Immature Granu locytes (promyelocytes, myelocytes and metamyelocytes) > 1% indicates that a LEFT SHIFT is Present. MCH (RBC) [Entitic mass] 29.4 pg 27.0-32.0 [facility] Nucleated RBC/100 WBC (Bld) [Ratio] 0 % 0-5 [facility] MCHC Auto (RBC) [Mass/Vol]Or dered By: Ilda Yeager on 08-30-2023 MCHC (RBC) [Mass/Vol] 31.3 g/dL 32-36 [facility] No Panel InformationOrdered By: Ilda Yeager on 08-30-2023 Estimated GFR (MDRD) Amer 107 mL/min >60 [facility] Comment on above: GFR Calc Estimated GFR (MDRD) Non-Af Amer 88 mL/min >60 [facility] Comment on above: Non- GFR Calc Free Triiodothyronine (T3) pg/dL 2.7 pg/mL 2.18-3.98 [facility] Thyroid Stimulating Hormone (TSH) 1.17 uIU/mL 0.358-3.74 [facility] Platelets bldOrdered By: Cathy Yeager on 11-10-2023 Platelets (Bld) [#/Vol] 291 10*3/uL 150-450 [facility] Serum or plasma albumin vasiliy urement (mass/volume)Ordered By: Ilda Yeager on 08-30-2023 Albumin [Mass/Vol] 3.8 g/dL 3.2-5.0 [facility] Serum or plasma albumin/glob ulin mass ratioOrdered By: Ilda Yeager on 08-30-2023 Albumin/Globulin [Mass ratio] 1.2 {ratio} 0.9-2.4 [facility] Serum or plasma calcium vasiliy urement (mass/volume)Ordered By: Ilda Yeager on 08-30-2023 Calcium [Mass/Vol] 8.8 mg/dL 8.5-10.1 [facility] Serum or plasma cholesterol in HDL measurement (mass/volume)Ordered By: Ilda Yeager on 08-30-2023 Cholesterol in HDL [Mass/Vol] 62 mg/dL >40 [facility] Comment on above: The drugs N-Acetylcy steine and Metamizole may falsely depress this assay. Reference Range HDL <40 mg/dL Low HDL Cholesterol HDL >or= 60 mg/dL High HDL Cholesterol Serum or plasma cholesterol in VLDL measurement (mass/volume)Ordered By: Ilda Yeager on 08-30-2023 Cholesterol in VLDL [Mass/Vol] 15 mg/dL 5-40 [facility] Serum or plasma creatinine m easurement (mass/volume)Ordered By: Ilda Yeager on 08-30-2023 Creatinine [Mass/Vol] 0.71 mg/dL 0.55-1.02 [facility] Comment on above: The validity of the calculated GFR & GFRAA in patients over 70 years has not been determined. Clinical correlation is essential. Serum or plasma ferritin roger surement (mass/volume)Ordered By: Ilda Yeager on 08-30-2023 Ferritin [Mass/Vol] 252 ng/mL 8-252 [facility] Serum or plasma low density lipoprotein (LDL) cholesterol measurement (mass/volume)Ordered By: Ilda Yeager on 08-30-2023 Cholesterol in LDL [Mass/Vol] 131 mg/dL 0-130 [facility] Serum or plasma urea nitroge n measurement (mass/volume)Ordered By: Ilda Yeager on 08-30-2023 Urea nitrogen [Mass/Vol] 16 mg/dL 7-18 [facility] Thin prep Papanicolaou smear with manual screeningOrdered By: Ilda Yeager on 08-30-2023 Thin prep Papanicolaou smear with manual screening 13 U/L 15-37 [facility] Thin prep Papanicolaou smear with manual screening 5 5-15 [facility] Basophil percentageOrdered B y: Ilda Yeager on 04-08-2023 Bilirubin [Mass/Vol] 0.40 mg/dL 0.20-1.00 [facility] Comment on above: For patients on eltr ombopag therapy, use of Dimension [place] TBIL is not recommended. Chloride [Moles/Vol] 106 mmol/L 98-107 [facility] Glucose [Mass/Vol] 103 mg/dL 74-106 [facility] Comment on above: Fasting Glucose resu lt from 100 to 125 mg/dL suggests IMPAIRED HOMEOSTASIS per A.D.A. criteria. Potassium [Moles/Vol] 4.6 mmol/L 3.5-5.1 [facility] Protein [Mass/Vol] 7.4 g/dL 6.4-8.2 [facility] Sodium [Moles/Vol] 137 mmol/L 136-145 [facility] Laboratory - Chemistry and C hemistry - challengeOrdered By: Ilda Yeager on 04-08-2023 ALP [Catalytic activity/Vol] 52 U/L 45-117 [facility] ALT [Catalytic activity/Vol] 41 U/L 13-56 [facility] CO2 [Moles/Vol] 26.0 mmol/L 21.0-32.0 [facility] Globulin (S) [Mass/Vol] 3.6 g/dL 2.2-4.2 [facility] Urea nitrogen/Creatinine [Mass ratio] 30.1 mg/mg 10-20 [facility] No Panel InformationOrdered By: Ilda Yeager on 04-08-2023 Estimated GFR (MDRD) Amer 89 mL/min >60 [facility] Comment on above: GFR Calc Estimated GFR (MDRD) Non-Af Amer 74 mL/min >60 [facility] Comment on above: Non- GFR Calc Serum or plasma albumin vasiliy urement (mass/volume)Ordered By: Ilda Yeager on 04-08-2023 Albumin [Mass/Vol] 3.8 g/dL 3.2-5.0 [facility] Serum or plasma albumin/glob ulin mass ratioOrdered By: Ilda Yeager on 04-08-2023 Albumin/Globulin [Mass ratio] 1.1 {ratio} 0.9-2.4 [facility] Serum or plasma calcium vasiliy urement (mass/volume)Ordered By: Ilda Yeager on 04-08-2023 Calcium [Mass/Vol] 9.4 mg/dL 8.5-10.1 [facility] Serum or plasma creatinine m easurement (mass/volume)Ordered By: Ilda Yeager on 04-08-2023 Creatinine [Mass/Vol] 0.83 mg/dL 0.55-1.02 [facility] Comment on above: The validity of the calculated GFR & GFRAA in patients over 70 years has not been determined. Clinical correlation is essential. Serum or plasma urea nitroge n measurement (mass/volume)Ordered By: Ilda Yeager on 04-08-2023 Urea nitrogen [Mass/Vol] 25 mg/dL 7-18 [facility] Thin prep Papanicolaou smear with manual screeningOrdered By: Ilda Yeager on 04-08-2023 Thin prep Papanicolaou smear with manual screening 18 U/L 15-37 [facility] Thin prep Papanicolaou smear with manual screening 5 5-15 [facility] Basophil percentageOrdered B y: Dr. Yeager on 02-16-2023 Bilirubin [Mass/Vol] 0.30 mg/dL 0.20-1.00 [facility] Comment on above: For patients on eltr ombopag therapy, use of Dimension [place] TBIL is not recommended. Chloride [Moles/Vol] 106 mmol/L 98-107 [facility] Glucose [Mass/Vol] 119 mg/dL 74-106 [facility] Comment on above: Fasting Glucose resu lt from 100 to 125 mg/dL suggests IMPAIRED HOMEOSTASIS per A.D.A. criteria. Potassium [Moles/Vol] 3.8 mmol/L 3.5-5.1 [facility] Protein [Mass/Vol] 6.7 g/dL 6.4-8.2 [facility] Sodium [Moles/Vol] 140 mmol/L 136-145 [facility] Iron measurement (mass/mass) Ordered By: Dr. Yeager on 02-16-2023 Iron (Unsp spec) [Mass/Mass] 71 ug/dL 50-170 [facility] Laboratory - Chemistry and C hemistry - challengeOrdered By: Dr. Yeager on 02-16-2023 ALP [Catalytic activity/Vol] 52 U/L 45-117 [facility] ALT [Catalytic activity/Vol] 54 U/L 13-56 [facility] CO2 [Moles/Vol] 28.0 mmol/L 21.0-32.0 [facility] Globulin (S) [Mass/Vol] 3.0 g/dL 2.2-4.2 [facility] Urea nitrogen/Creatinine [Mass ratio] 30.5 mg/mg 10-20 [facility] No Panel InformationOrdered By: Dr. Yeager on 02-16-2023 Estimated GFR (MDRD) Amer 132 mL/min >60 [facility] Comment on above: GFR Calc Estimated GFR (MDRD) Non-Af Amer 109 mL/min >60 [facility] Comment on above: Non- GFR Calc Serum or plasma albumin vasiliy urement (mass/volume)Ordered By: Dr. Yeager on 02-16-2023 Albumin [Mass/Vol] 3.7 g/dL 3.2-5.0 [facility] Serum or plasma albumin/glob ulin mass ratioOrdered By: Dr. Yeager on 02-16-2023 Albumin/Globulin [Mass ratio] 1.2 {ratio} 0.9-2.4 [facility] Serum or plasma calcium vasiliy urement (mass/volume)Ordered By: Dr. Yeager on 02-16-2023 Calcium [Mass/Vol] 8.6 mg/dL 8.5-10.1 [facility] Serum or plasma creatinine m easurement (mass/volume)Ordered By: Dr. Yeager on 02-16-2023 Creatinine [Mass/Vol] 0.59 mg/dL 0.55-1.02 [facility] Comment on above: The validity of the calculated GFR & GFRAA in patients over 70 years has not been determined. Clinical correlation is essential. Serum or plasma ferritin roger surement (mass/volume)Ordered By: Dr. Yeager on 02-16-2023 Ferritin [Mass/Vol] 261 ng/mL 8-252 [facility] Serum or plasma urea nitroge n measurement (mass/volume)Ordered By: Dr. Yeager on 02-16-2023 Urea nitrogen [Mass/Vol] 18 mg/dL 7-18 [facility] Thin prep Papanicolaou smear with manual screeningOrdered By: Dr. Yeager on 02-16-2023 Thin prep Papanicolaou smear with manual screening 24 U/L 15-37 [facility] Thin prep Papanicolaou smear with manual screening 6 5-15 [facility] Absolute lymphocyte countOrd ered By: Dr. Yeager on 12-19-2022 Lymphocytes Auto (Unsp spec) [#/Vol] 2.42 10*3/uL 0.83-4.51 [facility] Basophil percentageOrdered B y: Dr. Yeager on 12-19-2022 Basophils/100 WBC (Bld) 0.5 % 0-1 [facility] Bilirubin [Mass/Vol] 0.20 mg/dL 0.20-1.00 [facility] Comment on above: For patients on eltr ombopag therapy, use of Dimension [place] TBIL is not recommended. Chloride [Moles/Vol] 106 mmol/L 98-107 [facility] Eosinophils/100 WBC (Bld) 2.4 % 0-5 [facility] Glucose [Mass/Vol] 143 mg/dL 74-106 [facility] Comment on above: Fasting Glucose resu lt greater than or equal to 126 mg/dL suggests DIABETES MELLITUS per A.D.A. criteria. Neutrophils (Bld) [#/Vol] 4.5 10*3/uL 2.0-7.7 [facility] Neutrophils/100 WBC (Bld) 57.0 % 47-70 [facility] Potassium [Moles/Vol] 3.9 mmol/L 3.5-5.1 [facility] Protein [Mass/Vol] 7.0 g/dL 6.4-8.2 [facility] Sodium [Moles/Vol] 141 mmol/L 136-145 [facility] WBC (Bld) [#/Vol] 7.9 10*3/uL 4.4-11.0 [facility] Blood erythrocytes count (nu mber/volume)Ordered By: Dr. Yeager on 12-19-2022 RBC (Bld) [#/Vol] 4.81 10*6/uL 4.2-5.4 [facility] Blood hemoglobin measurement (mass/volume)Ordered By: Dr. Yeager on 12-19-2022 Hemoglobin (Bld) [Mass/Vol] 14.2 g/dL 12.0-15.0 [facility] Blood lymphocytes/100 leukoc ytesOrdered By: Dr. Yeager on 12-19-2022 Lymphocytes/100 WBC (Bld) 30.6 % 19-41 [facility] Blood monocytes/100 leukocyt esOrdered By: Dr. Yeager on 12-19-2022 Monocytes/100 WBC (Bld) 9.2 % 0-10 [facility] Blood platelet mean volumeOr dered By: Dr. Yeager on 12-19-2022 Platelet mean volume (Bld) [Entitic vol] 11.4 fL 6.2-12.0 [facility] Determination of erythrocyte mean corpuscular volume (MCV)Ordered By: Dr. Yeager on 12-19-2022 MCV (RBC) [Entitic vol] 92.5 fL 81-99 [facility] Hematocrit Auto (Bld) [Volum e fraction]Ordered By: Dr. Yeager on 12-19-2022 Hematocrit (Bld) [Volume fraction] 44.5 % 37-47 [facility] Iron measurement (mass/mass) Ordered By: Dr. Yeager on 12-19-2022 Iron (Unsp spec) [Mass/Mass] 104 ug/dL 50-170 [facility] Laboratory - Chemistry and C hemistry - challengeOrdered By: Dr. Yeager on 12-19-2022 ALP [Catalytic activity/Vol] 55 U/L 45-117 [facility] ALT [Catalytic activity/Vol] 120 U/L 13-56 [facility] CO2 [Moles/Vol] 27.0 mmol/L 21.0-32.0 [facility] Cobalamin (Vitamin B12) [Mass/Vol] 553 pg/mL 211-911 [facility] Free T4 [Mass/Vol] 0.94 ng/dL 0.76-1.46 [facility] Globulin (S) [Mass/Vol] 3.3 g/dL 2.2-4.2 [facility] Urea nitrogen/Creatinine [Mass ratio] 22.3 mg/mg 10-20 [facility] Laboratory - Hematology and Cell countsOrdered By: Dr. Yeager on 12-19-2022 Erythrocyte distribution width (RBC) [Entitic vol] 42.9 fL 35.1-43.9 [facility] Erythrocyte distribution width (RBC) [Ratio] 12.6 % 11.6-14.6 [facility] Immature granulocytes/100 WBC (Bld) 0.300 % 0.0-0.9 [facility] Comment on above: IG% - Immature Granu locytes (promyelocytes, myelocytes and metamyelocytes) > 1% indicates that a LEFT SHIFT is Present. MCH (RBC) [Entitic mass] 29.5 pg 27.0-32.0 [facility] Nucleated RBC/100 WBC (Bld) [Ratio] 0 % 0-5 [facility] MCHC Auto (RBC) [Mass/Vol]Or dered By: Dr. Yeager on 12-19-2022 MCHC (RBC) [Mass/Vol] 31.9 g/dL 32-36 [facility] No Panel InformationOrdered By: Dr. Yeager on 12-19-2022 Estimated GFR (MDRD) Amer 105 mL/min >60 [facility] Comment on above: GFR Calc Estimated GFR (MDRD) Non-Af Amer 87 mL/min >60 [facility] Comment on above: Non- GFR Calc Free Triiodothyronine (T3) pg/dL 3.3 pg/mL 2.18-3.98 [facility] Thyroid Stimulating Hormone (TSH) 1.02 uIU/mL 0.358-3.74 [facility] Platelets bldOrdered By: Dr. Yeager on 12-19-2022 Platelets (Bld) [#/Vol] 273 10*3/uL 150-450 [facility] Serum or plasma albumin vasiliy urement (mass/volume)Ordered By: Dr. Yeager on 12-19-2022 Albumin [Mass/Vol] 3.7 g/dL 3.2-5.0 [facility] Serum or plasma albumin/glob ulin mass ratioOrdered By: Dr. Yeager on 12-19-2022 Albumin/Globulin [Mass ratio] 1.1 {ratio} 0.9-2.4 [facility] Serum or plasma calcium vasiliy urement (mass/volume)Ordered By: Dr. Yeager on 12-19-2022 Calcium [Mass/Vol] 9.3 mg/dL 8.5-10.1 [facility] Serum or plasma creatinine m easurement (mass/volume)Ordered By: Dr. Yeager on 12-19-2022 Creatinine [Mass/Vol] 0.72 mg/dL 0.55-1.02 [facility] Comment on above: The validity of the calculated GFR & GFRAA in patients over 70 years has not been determined. Clinical correlation is essential. Serum or plasma ferritin roger surement (mass/volume)Ordered By: Dr. Yeager on 12-19-2022 Ferritin [Mass/Vol] 325 ng/mL 8-252 [facility] Serum or plasma urea nitroge n measurement (mass/volume)Ordered By: Dr. Yeager on 12-19-2022 Urea nitrogen [Mass/Vol] 16 mg/dL 7-18 [facility] Thin prep Papanicolaou smear with manual screeningOrdered By: Dr. Yeager on 12-19-2022 Thin prep Papanicolaou smear with manual screening 48 U/L 15-37 [facility] Thin prep Papanicolaou smear with manual screening 8 5-15 [facility] Absolute lymphocyte countOrd ered By: Dr. Yeager on 09-01-2022 Lymphocytes Auto (Unsp spec) [#/Vol] 2.58 10*3/uL 0.83-4.51 [facility] Basophil percentageOrdered B y: Dr. Yeager on 09-01-2022 Basophils/100 WBC (Bld) 0.4 % 0-1 [facility] Bilirubin [Mass/Vol] 0.40 mg/dL 0.20-1.00 [facility] Comment on above: For patients on eltr ombopag therapy, use of Dimension [place] TBIL is not recommended. Chloride [Moles/Vol] 103 mmol/L 98-107 [facility] Cholesterol [Mass/Vol] 191 mg/dL <200 [facility] Comment on above: <200 mg/dL Desirable 200-240 mg/dL Borderline >240 mg/dL High Risk Eosinophils/100 WBC (Bld) 2.1 % 0-5 [facility] Glucose [Mass/Vol] 104 mg/dL 74-106 [facility] Comment on above: Fasting Glucose resu lt from 100 to 125 mg/dL suggests IMPAIRED HOMEOSTASIS per A.D.A. criteria. Neutrophils (Bld) [#/Vol] 5.4 10*3/uL 2.0-7.7 [facility] Neutrophils/100 WBC (Bld) 60.4 % 47-70 [facility] Potassium [Moles/Vol] 3.7 mmol/L 3.5-5.1 [facility] Protein [Mass/Vol] 7.3 g/dL 6.4-8.2 [facility] Sodium [Moles/Vol] 140 mmol/L 136-145 [facility] Triglyceride [Mass/Vol] 107 mg/dL <199 [facility] Comment on above: The drugs N-Acetylcy steine and Metamizole may falsely depress this assay.Serum Triglycerides Reference Interval Normal <150 mg/dL Borderline high 150 - 199 mg/dL High 200 - 499 mg/dL Very High > or = 500 mg/dL WBC (Bld) [#/Vol] 9.0 10*3/uL 4.4-11.0 [facility] Blood erythrocytes count (nu mber/volume)Ordered By: Dr. Yeager on 09-01-2022 RBC (Bld) [#/Vol] 4.72 10*6/uL 4.2-5.4 [facility] Blood hemoglobin measurement (mass/volume)Ordered By: Dr. Yeager on 09-01-2022 Hemoglobin (Bld) [Mass/Vol] 14.5 g/dL 12.0-15.0 [facility] Blood lymphocytes/100 leukoc ytesOrdered By: Dr. Yeager on 09-01-2022 Lymphocytes/100 WBC (Bld) 28.8 % 19-41 [facility] Blood monocytes/100 leukocyt esOrdered By: Dr. Yeager on 09-01-2022 Monocytes/100 WBC (Bld) 7.7 % 0-10 [facility] Blood platelet mean volumeOr dered By: Dr. Yeager on 09-01-2022 Platelet mean volume (Bld) [Entitic vol] 10.4 fL 6.2-12.0 [facility] Determination of erythrocyte mean corpuscular volume (MCV)Ordered By: Dr. Yeager on 09-01-2022 MCV (RBC) [Entitic vol] 93.0 fL 81-99 [facility] Hematocrit Auto (Bld) [Volum e fraction]Ordered By: Dr. Yeager on 09-01-2022 Hematocrit (Bld) [Volume fraction] 43.9 % 37-47 [facility] Laboratory - Chemistry and C hemistry - challengeOrdered By: Dr. Yeager on 09-01-2022 ALP [Catalytic activity/Vol] 56 U/L 45-117 [facility] ALT [Catalytic activity/Vol] 36 U/L 13-56 [facility] CO2 [Moles/Vol] 30.0 mmol/L 21.0-32.0 [facility] Free T4 [Mass/Vol] 0.92 ng/dL 0.76-1.46 [facility] Globulin (S) [Mass/Vol] 3.6 g/dL 2.2-4.2 [facility] Magnesium [Mass/Vol] 2.3 mg/dL 1.6-2.6 [facility] Urea nitrogen/Creatinine [Mass ratio] 29.4 mg/mg 10-20 [facility] Laboratory - Hematology and Cell countsOrdered By: Dr. Yeager on 09-01-2022 Erythrocyte distribution width (RBC) [Entitic vol] 44.6 fL 35.1-43.9 [facility] Erythrocyte distribution width (RBC) [Ratio] 13.0 % 11.6-14.6 [facility] Immature granulocytes/100 WBC (Bld) 0.600 % 0.0-0.9 [facility] Comment on above: IG% - Immature Granu locytes (promyelocytes, myelocytes and metamyelocytes) > 1% indicates that a LEFT SHIFT is Present. MCH (RBC) [Entitic mass] 30.7 pg 27.0-32.0 [facility] Nucleated RBC/100 WBC (Bld) [Ratio] 0 % 0[facility]5 [facility] [Mass/Vol]Or dered By: Dr. Yeager on 09-01-2022 MCHC (RBC) [Mass/Vol] 33.0 g/dL 32-36 [facility] No Panel InformationOrdered By: Dr. Yeager on 09-01-2022 Estimated GFR (MDRD) Amer 127 mL/min >60 [facility] Comment on above: GFR Calc Estimated GFR (MDRD) Non-Af Amer 105 mL/min >60 [facility] Comment on above: Non- GFR Calc Free Triiodothyronine (T3) pg/dL 2.6 pg/mL 2.18-3.98 [facility] Thyroid Stimulating Hormone (TSH) 1.08 uIU/mL 0.358-3.74 [facility] Platelets bldOrdered By: Dr. Yeager on 09-01-2022 Platelets (Bld) [#/Vol] 287 10*3/uL 150-450 [facility] Serum or plasma albumin vasiliy urement (mass/volume)Ordered By: Dr. Yeager on 09-01-2022 Albumin [Mass/Vol] 3.7 g/dL 3.2-5.0 [facility] Serum or plasma albumin/glob ulin mass ratioOrdered By: Dr. Yeager on 09-01-2022 Albumin/Globulin [Mass ratio] 1.0 {ratio} 0.9-2.4 [facility] Serum or plasma calcium vasiliy urement (mass/volume)Ordered By: Dr. Yeager on 09-01-2022 Calcium [Mass/Vol] 9.1 mg/dL 8.5-10.1 [facility] Serum or plasma cholesterol in HDL measurement (mass/volume)Ordered By: Dr. Yeager on 09-01-2022 Cholesterol in HDL [Mass/Vol] 70 mg/dL >40 [facility] Comment on above: The drugs N-Acetylcy steine and Metamizole may falsely depress this assay. Reference Range HDL <40 mg/dL Low HDL Cholesterol HDL >or= 60 mg/dL High HDL Cholesterol Serum or plasma cholesterol in VLDL measurement (mass/volume)Ordered By: Dr. Yeager on 09-01-2022 Cholesterol in VLDL [Mass/Vol] 21 mg/dL 5-40 [facility] Serum or plasma creatinine m easurement (mass/volume)Ordered By: Dr. Yeager on 09-01-2022 Creatinine [Mass/Vol] 0.61 mg/dL 0.55-1.02 [facility] Comment on above: The validity of the calculated GFR & GFRAA in patients over 70 years has not been determined. Clinical correlation is essential. Serum or plasma low density lipoprotein (LDL) cholesterol measurement (mass/volume)Ordered By: Dr. Yeager on 09-01-2022 Cholesterol in LDL [Mass/Vol] 100 mg/dL 0-130 [facility] Serum or plasma urea nitroge n measurement (mass/volume)Ordered By: Dr. Yeager on 09-01-2022 Urea nitrogen [Mass/Vol] 18 mg/dL 7-18 [facility] Thin prep Papanicolaou smear with manual screeningOrdered By: Dr. Yeager on 09-01-2022 Thin prep Papanicolaou smear with manual screening 17 U/L 15-37 [facility] Thin prep Papanicolaou smear with manual screening 7 5-15 [facility] T3 Totalon 05-27-2017 T3 Total 119.0 ng/mL Normal 87.0-167.0 [facility] Comment on above: Order Comment: PATIE NT IS FASTING Result Comment: Test ing performedLab[address] [id number] Performed By: #### T 3TOT ####[address] [id number] T4,Freeon 05-27-2017 Thyroxine (T4) free 1.3 ng/dL Normal 0.8-1.4 [facility] Comment on above: Order Comment: PATIE NT IS FASTING Result Comment: New Reference Ranges - effective 08/10/09. Performed By: #### T 4FR ####[address] [id number] TSHon 05-27-2017 Thyroid stimulating hormone (TSH) 1.373 uIU/mL Normal 0.350-5.500 [facility] Comment on above: Order Comment: PATIE NT IS FASTING Performed By: #### T SH ####[address] [id number] Comp Metabolic Panelon 05-25 Alanine aminotransferase (ALT) 26 U/L Normal 0-31 [facility] Comment on above: Order Comment: PATIE NT IS FASTING Performed By: #### C MP ####[address] [phone] Albumin 3.9 g/dL Normal 3.5-5.0 [facility] Comment on above: Order Comment: PATIE NT IS FASTING Performed By: #### C MP ####[address] [phone] Alkaline phosphatase (ALP) 40 U/L Normal 35-104 [facility] Comment on above: Order Comment: PATIE NT IS FASTING Performed By: #### C MP ####[address] [id number] Aspartate aminotransferase (AST) 19 U/L Normal 0-31 [facility] Comment on above: Order Comment: PATIE NT IS FASTING Performed By: #### C MP ####[address] [phone] Bili,Total 0.5 mg/dl Normal 0.0-1.0 [facility] Comment on above: Order Comment: PATIE NT IS FASTING Result Comment: Sim ature : 1 Day 1.0-6.0 mg/dl 2 Day 6.0-8.0 mg/dl 3-5 Day 10.0-15.0 mg/dl Performed By: #### C MP ####[address] [id number] Calcium 9.0 mg/dL Normal 7.6-11.0 [facility] Comment on above: Order Comment: PATIE NT IS FASTING Performed By: #### C MP ####[address] [phone] Chloride 105 mmol/L Normal 96-108 [facility] Comment on above: Order Comment: PATIE NT IS FASTING Performed By: #### C MP ####[address] [phone] CO2 26.2 mmol/L Normal 22.0-29.0 [facility] Comment on above: Order Comment: PATIE NT IS FASTING Performed By: #### C MP ####[address] [phone] Creatinine 0.67 mg/dL Normal 0.50-1.00 [facility] Comment on above: Order Comment: PATIE NT IS FASTING Result Comment: Sim ature 0.3-1.0 mg/dL Performed By: #### C MP ####[address] [phone] Glucose mass conc 101 mg/dL High 70-99 [facility] Comment on above: Order Comment: PATIE NT IS FASTING Result Comment: Babak yadav for Diagnosis of Diabetes(Effective 03/26/11):Fasting specimen (no caloric intake for at least 8 hours). <100 mg/dl Normal 100-125 mg/dl Increased Risk for Diabetes >125 mg/dl Diagnostic for DiabetesRandom Glucose (any time of day without regard to last meal). >=200 mg/dl plus Classic Symptoms of Diabetes Performed By: #### C MP ####[address] [phone] Potassium molar conc 4.0 mmol/L Normal 3.3-5.1 [facility] Comment on above: Order Comment: PATIE NT IS FASTING Performed By: #### C MP ####[address] [phone] Protein 6.9 g/dL Normal 5.9-8.4 [facility] Comment on above: Order Comment: PATIE NT IS FASTING Performed By: #### C MP ####[address] [phone] Sodium 138 mmol/L Normal 133-145 [facility] Comment on above: Order Comment: PATIE NT IS FASTING Performed By: #### C MP ####[address] [phone] Urea nitrogen 16 mg/dL Normal 4-19 [facility] Comment on above: Order Comment: PATIE NT IS FASTING Performed By: #### C MP ####[address] [phone] Complete Blood Counton 05-25 Differential Complete Automated Normal [facility] Comment on above: Order Comment: PATIE NT IS FASTING Performed By: #### C BC ####[address] [phone] % Neutrophils 57.8 % Normal 35.0-66.0 [facility] Comment on above: Order Comment: PATIE NT IS FASTING Performed By: #### C BC ####[address] [phone] Basophils/100 WBC Auto (Bld) 0.39 % Normal 0.00-1.00 [facility] Comment on above: Order Comment: PATIE NT IS FASTING Performed By: #### C BC ####[address] [phone] Eosinophils/100 leukocytes 2.78 % Normal 0.00-3.00 [facility] Comment on above: Order Comment: PATIE NT IS FASTING Performed By: #### C BC ####[address] [phone] Erythrocyte distribution width Auto Ratio (RBC) 12.0 % Normal 0.0-14.4 [facility] Comment on above: Order Comment: PATIE NT IS FASTING Performed By: #### C BC ####[address] [phone] Erythrocytes (RBC) 4.48 10E12/L Normal 4.00-4.90 [facility] Comment on above: Order Comment: PATIE NT IS FASTING Performed By: #### C BC ####[place] [phone] Hematocrit (HCT) 42.0 % Normal 36.0-44.0 [facility] Comment on above: Order Comment: PATIE NT IS FASTING Performed By: #### C BC ####[address] [phone] Hemoglobin mass conc (Bld) 14.4 g/dL Normal 12.0-15.0 [facility] Comment on above: Order Comment: PATIE NT IS FASTING Performed By: #### C BC ####[place] [phone] Lymphocytes/100 leukocytes 31.2 % Normal 24.0-44.0 [facility] Comment on above: Order Comment: PATIE NT IS FASTING Performed By: #### C BC ####[address] [phone] MCH 32.1 pg Normal 26.0-34.0 [facility] Comment on above: Order Comment: PATIE NT IS FASTING Performed By: #### C BC ####[address] [phone] MCHC mass conc (RBC) 34.3 % Normal 31.0-37.0 [facility] Comment on above: Order Comment: PATIE NT IS FASTING Performed By: #### C BC ####[place] [phone] MCV 93.6 fL Normal 80.0-100.0 [facility] Comment on above: Order Comment: PATIE NT IS FASTING Performed By: #### C BC ####[address] [phone] Monocytes/100 leukocytes 7.88 % High 3.00-6.00 [facility] Comment on above: Order Comment: PATIE NT IS FASTING Performed By: #### C BC ####[address] [phone] Neutrophils 3.8 Normal [facility] Comment on above: Order Comment: PATIE NT IS FASTING Performed By: #### C BC ####[address] [phone] Platelet mean volume (PMV) 7.8 fL Normal [facility] Comment on above: Order Comment: PATIE NT IS FASTING Result Comment: MPV is plateletrange and agedependent Performed By: #### C BC ####[address] [phone] Platelets 214 10*3/uL Normal 150-450 [facility] Comment on above: Order Comment: PATIE NT IS FASTING Performed By: #### C BC ####[address] [phone] WBC (Leukocytes) 6.5 10*3/uL Normal 4.5-11.0 [facility] Comment on above: Order Comment: PATIE NT IS FASTING Performed By: #### C BC ####[address] [phone] Lipid Panelon 05-25-2017 Cholesterol 187 mg/dL Normal 0-199 [facility] Comment on above: Order Comment: PATIE NT IS FASTING Result Comment: Anyi rable <200 mg/dLBorderline 200-239 mg/dLHigh Risk >239 mg/dL Performed By: #### L IPID ####[address] [phone] Cholesterol in VLDL mass conc 16 mg/dL Normal [facility] Comment on above: Order Comment: PATIE NT IS FASTING Performed By: #### L IPID ####[address] [phone] HDL Cholesterol 58 mg/dL Normal [facility] Comment on above: Order Comment: PATIE NT IS FASTING Result Comment: Male < 40mg/dL High RiskFemale < 50mg/dL High RiskMale & Female > 60mg/dL Low Risk Performed By: #### L IPID ####[address] [phone] LDL Cholesterol 113 mg/dl Normal 0-129 [facility] Comment on above: Order Comment: PATIE NT IS FASTING Result Comment: Anyi rable <130 mg/dLBorderline 130-159 mg/dLHigh Risk >159 mg/dl Performed By: #### L IPID ####[address] [phone] Triglyceride 82 mg/dL Normal [facility] Comment on above: Order Comment: PATIE NT IS FASTING Result Comment: Norm al <150 mg/dlBorderline 150-199 mg/dlHigh 200-500 mg/dlVery High >500 mg/dlResult invalid if not a fasting specimen. Performed By: #### L IPID ####[address] [phone] MA MAMMOGRAM SCREENING BILAT ERAL W/TOMOon 05-21-2017 MA MAMMOGRAM SCREENING BILATERAL W/KAY ORIGINALFROM:[address] [address]Axjwg: [phone] PROCEDURE FOR:YANCY [id number] [place], [place] [address]Zvrz: [phone]#: [id number]#: [id number]#: [id number]: 9Age: 57 TO:ILDA YEAGER [id number] [place], [place] [address] #[id number] DIGITAL SCREENING MAMMOGRAM 3D/2D WITH CAD: 05/21/2017Comparison is made to exam dated: 02/22/2016 mammogram - [facility]. There are scattered fibroglandular elements in both breasts. Current study was also evaluated with a Computer Aided Detection (CAD) system. There are benign scattered calcifications in both breasts. No significant masses, calcifications, or other findings are seen in either breast. There has been no significant interval change. IMPRESSION: BENIGNThere is no mammographic evidence of malignancy. A 1 year screening mammogram is recommended. I have personally reviewed the images of the examination and agree with the findings and interpretation. HOWARD SAAVEDRA MDab,yz/penrad: 017 12:17:18 Trench Digger Helper: GREG MAN(Christopher)(M), [facility]: Normal BI-RADS 1&2 Mammogram BI-RADS: 2 Benign Normal [facility] ([place]) Office Visit: GUANAKO: geni Alcoholism counseling (procedure) no Invalid Interpretation Code [facility] Work Phone: Documentation of current medications (procedure) Done Invalid Interpretation Code [facility] Work Phone: Fall risk assessment No Invalid Interpretation Code [facility] Work Phone: Tobacco smoking status NHIS Never Invalid Interpretation Code [facility] Work Phone: Tobacco use HS Never smoker Invalid Interpretation Code [facility] Work Phone: Lab Report: Basic Metabolic Profile (BMP)on 03-26-2016 Anion gap 7 mmol/L Invalid Interpretation Code 5-15 [facility] Work Phone: BUN/Creatinine Ratio 22.5 RATIO High 10-20 [facility] Work Phone: Calcium 8.8 mg/dL Invalid Interpretation Code 8.5-10.1 [facility] Work Phone: Chloride 106 mmol/L Invalid Interpretation Code 98-107 [facility] Work Phone: [phone] CO2 28.0 mmol/L Invalid Interpretation Code 21.0-32.0 [facility] Work Phone: [phone] Creatinine 61.12 mL/min Invalid Interpretation Code [facility] Work Phone: [phone] Creatinine 0.84 mg/dL Invalid Interpretation Code 0.55-1.20 [facility] Work Phone: eGFR (non-black) 74 mL/min/{1.73_m2} Invalid Interpretation Code >60 [facility] Work Phone: [phone] eGFR (non-black) 90 mL/min/{1.73_m2} Invalid Interpretation Code >60 [facility] Work Phone: Glucose 112 mg/dL High 70-110 [facility] Work Phone: Potassium 3.7 mmol/L Invalid Interpretation Code 3.5-5.1 [facility] Work Phone: Sodium 141 mmol/L Invalid Interpretation Code 136-145 [facility] Work Phone: Urea nitrogen 19 mg/dL High 7-18 [facility] Work Phone: Lab Report: CBC W/Diff, Auto matedon 03-26-2016 Basophils/100 leukocytes 0.3 % Invalid Interpretation Code 0-1 [facility] Work Phone: Eosinophils/100 leukocytes 3.9 % Invalid Interpretation Code 0-5 [facility] Work Phone: Erythrocytes (RBC) 4.54 10*6/uL Invalid Interpretation Code 4.2-5.4 [facility] Work Phone: Hematocrit (HCT) 41.5 % Invalid Interpretation Code 37-47 [facility] Work Phone: Hemoglobin (HGB) 13.7 g/dL Invalid Interpretation Code 12.0-15.0 [facility] Work Phone: [phone] immature granulocytes, percentage of total cells, blood 0.300 % Invalid Interpretation Code 0.0-0.9 [facility] Work Phone: [phone] Lymphocytes 2.16 X10 3/UL Invalid Interpretation Code 0.83-4.51 [facility] Work Phone: [phone] Lymphocytes/100 leukocytes 22.0 % Invalid Interpretation Code 19-41 [facility] Work Phone: [phone] MCH 30.2 pg Invalid Interpretation Code 27.0-32.0 [facility] Work Phone: [phone] MCHC 33.0 G/GL Invalid Interpretation Code 32-36 [facility] Work Phone: [phone] MCV 91.4 fL Invalid Interpretation Code 81-99 [facility] Work Phone: [phone] Monocytes/100 leukocytes 5.0 % Invalid Interpretation Code 0-10 [facility] Work Phone: [phone] neutrophil count, blood 6.7 X10 3/UL Invalid Interpretation Code 2.0-7.7 [facility] Work Phone: [phone] Neutrophils/100 leukocytes 68.5 % Invalid Interpretation Code 47-70 [facility] Work Phone: [phone] Platelets 222 10*3/mm3 Invalid Interpretation Code 150-450 [facility] Work Phone: [phone] PMV by Gabriela 10.9 fL Invalid Interpretation Code 6.2-12.0 [facility] Work Phone: [phone] RDW-CA 13.2 % Invalid Interpretation Code 11.6-14.6 [facility] Work Phone: [phone] red blood cell distribution width, size density 43.8 fL Invalid Interpretation Code 35.1-43.9 [facility] Work Phone: [phone] WBC (Leukocytes) 9.8 10*3/uL Invalid Interpretation Code 4.4-11.0 [facility] Work Phone: [phone] Lab Report: HSV Culture and Typingon 03-26-2016 GE use only - for LinkLogic import when terms are not otherwise specified Comment Invalid Interpretation Code . [facility] Work Phone: [phone] Lab Report: (P) Urinalysis, Completeon 04-15-2015 Nitrite Urine Negative Invalid Interpretation Code Negative [facility] Work Phone: [phone] Occult Blood, urine 25 High Negative [facility] N ow Clinic Work Phone: [phone] specific gravity, urine 1.010 Invalid Interpretation Code 1.002-1.030 [facility] Work Phone: [phone] Urine, bilirubin presence Negative Invalid Interpretation Code Negative [facility] Work Phone: [phone] Urine, clarity Sl. Cloudy Invalid Interpretation Code Clear [facility] Work Phone: [phone] Urine, color Yellow Invalid Interpretation Code Yellow [facility] Work Phone: [phone] Urine, glucose presence Normal mg/dl Invalid Interpretation Code Normal [facility] Work Phone: [phone] Urine, ketones presence Negative Invalid Interpretation Code Negative [facility] Work Phone: [phone] Urine, leukocyte esterase presence 500 High Negative [facility] Work Phone: [phone] Urine, pH 6.5 [pH] Invalid Interpretation Code 5.0 - 8.0 [facility] Work Phone: [phone] Urine, protein Negative Invalid Interpretation Code Negative [facility] Work Phone: [phone] urobilinogen, urine, by dipstick Normal mg/dl Invalid Interpretation Code Normal [facility] Work Phone: [phone] Lab Report: Urinalysis, Comp leteon 04-15-2015 Urine, bacteria in sediment 0 /[HPF] Invalid Interpretation Code None Seen [facility] Work Phone: [phone] Urine, epithelial cells in sediment 0-5 SEEN Invalid Interpretation Code 5-10 [facility] Work Phone: [phone] Urine, erythrocytes in sediment by volume 0-5 SEEN Invalid Interpretation Code 0-5 [facility] Work Phone: [phone] Urine, mucus presence in sediment 0 SEEN Invalid Interpretation Code [facility] Work Phone: WBC (Leukocytes) 0-5 SEEN Invalid Interpretation Code 0-5 [facility] Work Phone: Office Visiton 01-21-2015 Breast Mammogram screening Normal Bilateral Invalid Interpretation Code [facility] Work Phone: Office Visiton 07-03-2013 INR in blood by coagulation Normal [facility] Work Phone: Office Visiton 01-29-2013 Colonoscopy (procedure) Colonoscopy (procedure) Invalid Interpretation Code [facility] Work Phone: Clinical 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 General categories [interpretation] of Cervical or vaginal smear or scraping by Cyto stain Done Invalid Interpretation Code [facility] Work Phone: Vital Signs Date Time Vital Sign Value Performing Clinician Facility 04-13-2024 11:25-0400 Diastolic blood pressure 59 mm[Hg] Claudio Elliott MD Work Phone: [facility] 04-13-2024 11:25-0400 Heart rate 60 /min Claudio Elliott MD Work Phone: [facility] 04-13-2024 11:25-0400 Respiratory rate 14 /min Claudio Elliott MD Work Phone: [facility] 04-13-2024 11:25-0400 SaO2% (BldA) [Mass fraction] 98 % Claudio Elliott MD Work Phone: [facility] 04-13-2024 11:25-0400 Systolic blood pressure 109 mm[Hg] Claudio Elliott MD Work Phone: [facility] 04-13-2024 09:55-0400 Body temperature 97.2 [degF] Claudio Elliott MD Work Phone: [facility] 04-13-2024 07:10-0400 Body height 157.5 cm Claudio Elliott MD Work Phone: [facility] 04-13-2024 07:10-0400 Body mass index (BMI) [Ratio] 32.66 kg/m2 Claudio Elliott MD Work Phone: [facility] 04-13-2024 07:10-0400 Body weight 81 kg Claudio Elliott MD Work Phone: [facility] 12-05-2023 13:03-0500 Body height 160 cm Claudio Elliott MD Work Phone: [facility] 12-05-2023 13:03-0500 Body mass index (BMI) [Ratio] 31.57 kg/m2 Claudio Elliott MD Work Phone: [facility] 12-05-2023 13:03-0500 Body temperature 96.3 [degF] Claudio Elliott MD Work Phone: [facility] 12-05-2023 13:03-0500 Body weight 80.83 kg Claudio Elliott MD Work Phone: [facility] 04-08-2023 09:04-0400 Body height 158.75 cm [facility] 04-08-2023 09:04-0400 Body weight 79.56 kg [facility] 06-29-2022 14:42-0400 Body height 158.75 cm [facility] Work Phone: 02-19-2017 08:55-0400 BMI (Body Mass Index) 31.1 kg/m2 Ximena Thakur LPN [facility] No w Clinic Work Phone: 02-19-2017 08:55-0400 Body Temperature 98.3 [degF] Ximena Thakur LPN [facility] Now Cli jessica Work Phone: 02-19-2017 08:55-0400 BP Diastolic 78 mm[Hg] Ximena Thakur LPN [facility] Now [facility] ic Work Phone: 02-19-2017 08:55-0400 BP Systolic 122 mm[Hg] Ximena Thakur LPN [facility] Now [facility] ic Work Phone: 02-19-2017 08:55-0400 Height 160.02 cm Ximena Thakur LPN [facility] Now Clin ic Work Phone: 02-19-2017 08:55-0400 Pulse (Heart Rate) 81 /min Ximena Thakur LPN [facility] Now C linic Work Phone: 02-19-2017 08:55-0400 Pulse Oximetry 95 % Ximena Thakur LPN [facility] Now Clin ic Work Phone: 02-19-2017 08:55-0400 Respiratory Rate 12 /min Ximena Thakur LPN [facility] Now Cli jessica Work Phone: 02-19-2017 08:55-0400 Weight 79.65 kg Ximena Thakur LPN [facility] Now Clin ic Work Phone: 04-26-2016 10:34-0400 BSA (Body Surface Area) 1.82 m2 Ximena Thakur LPN [facility] Work Phone: 02-09-2015 16:06-0400 BP Diastolic 84 mm[Hg] Ximena Thakur LPN [facility] Now Clin ic Work Phone: 02-09-2015 16:06-0400 BP Systolic 128 mm[Hg] Ximena Thakur LPN [facility] Now [facility] ic Work Phone: 10-04-2009 11:37-0500 Weight 79.55 kg Ximena Thakur LPN [facility] Now [facility] ic Work Phone: 09-01-2009 11:37-0500 Height 160.02 cm Ximena Thakur LPN [facility] Now [facility] ic Work Phone: Encounters Encounter Date Encounter Type Care Provider Facility Start: 03-24-2025 ambulatory Ilda Malys Facility:[facility] Start: 09-25-2024 End: 09-25-2024 ambulatory Ilda Malys Facility:[facility] Start: 09-25-2024 ambulatory Ilda Malys Facility:[facility] Start: 09-12-2024 End: 09-12-2024 ambulatory Ilda Yeager Facility:[facility] Start: 05-28-2024 End: 05-28-2024 ambulatory [facility] Start: 04-20-2024 End: 04-20-2024 ambulatory [facility] Start: 04-13-2024 End: 04-13-2024 Subsequent hospital visit by physician Claudio Elliott MD Work Phone: [facility] Comment on above: Brow ptosis, bilater al (Primary Dx); Nausea Start: 04-11-[address] [facility] Start: 12-05-2023 End: 12-05-2023 Office outpatient new 30 minutes Claudio Elliott MD Work Phone: [facility] Comment on above: Brow ptosis, bilater al (Primary Dx); Dermatochalasis of both upper eyelids Start: 12-05-2023 End: 12-05-2023 ambulatory [facility] Start: 08-30-2023 End: 08-30-2023 ambulatory [facility] Work Phone: Start: 08-30-2023 End: 08-30-2023 Patient encounter procedure [facility]-Outpatient Breast Imaging Work Phone: Start: 04-08-2023 End: 04-08-2023 Patient encounter procedure [facility]-Laboratory Work Phone: Start: 04-08-2023 End: 04-19-2023 ambulatory [facility] Work Phone: Start: 04-08-2023 End: 04-19-2023 Discharged Recurring [facility]-Nutritional Services Work Phone: Start: 02-16-2023 End: 02-16-2023 ambulatory [facility] Work Phone: Start: 02-16-2023 End: 02-16-2023 Patient encounter procedure [facility]-Laboratory Start: 01-05-2023 End: 01-05-2023 ambulatory [facility] Work Phone: Start: 01-05-2023 End: 01-05-2023 Patient encounter procedure [facility]-Ultrasound, [facility] Start: 12-19-2022 End: 12-19-2022 ambulatory [facility] Work Phone: Start: 12-19-2022 End: 12-19-2022 Patient encounter procedure [facility]-Laboratory, [place] Start: 09-01-2022 End: 09-01-2022 Patient encounter procedure [facility]-Laboratory Start: 08-16-2022 End: 08-16-2022 ambulatory [facility] Work Phone: Start: 08-16-2022 End: 08-16-2022 Patient encounter procedure [facility]-Outpatient Breast Imaging Start: 05-25-2017 End: 05-26-2017 Ambulatory ILDA YEAGER [facility] Start: 05-21-2017 End: 05-22-2017 Ambulatory ILDA YEAGER Facility:[facility] Date Procedure Procedure Detail Performing Clinician Start: 08-30-2023 Screening mammography Start: 01-05-2023 Ultrasonography of abdomen Start: 08-16-2022 Screening mammography Start: 02-19-2017 End: 02-19-2017 Drain/inject, joint/bursa Lucinda reynoso Work Phone: Start: 04-26-2016 Lipid 1996 panel - S william or Plasma Claudio Elliott MD Work Phone: Start: 04-26-2016 End: 05-08-2016 *CMP Complete Metabolic Panel Chelsie Blanton Jonny jasbircharli DO Work Phone: Start: 04-26-2016 End: 05-08-2016 Lipid panel [AGGREGATE] Chelsie Manrique DO Work Phone: Start: 04-26-2016 End: 05-08-2016 Thyroid stimulating hormone (TSH) Chelsie Manrique [employer] Work Phone: Start: 04-26-2016 End: 05-08-2016 Thyroxine (T4) free Chelsie Manrique DO Work Phone: Start: 03-23-2016 End: 03-27-2016 *CBC with Differential Chelsie Gorman O Work Phone: Start: 03-23-2016 End: 03-27-2016 *CMP Complete Metabolic Panel Chelsie nichols DO Work Phone: Start: 03-23-2016 End: 03-27-2016 *HSVS HSV Culture Screen [id number] Chelsie Manrique DO Work Phone: Start: 03-23-2016 End: 03-27-2016 Lipid panel [AGGREGATE] Chelsie Manrique DO Work Phone: Start: 02-09-2016 End: 03-27-2016 Mammogram, screening Chelsie Manrique DO Work Phone: Start: 04-15-2015 End: 03-27-2016 *CUUID - Urine ELIZABETH Culture - Identificatn Chelsie Manrique DO Work Phone: Start: 04-15-2015 End: 04-17-2015 Urinalysis complete panel - Urine Chelsie Manrique DO Work Phone: Start: 11-04-2014 End: 01-28-2015 Mammogram, Screening, both breasts Luciana Gomez MD Start: 07-23-2014 End: 07-26-2014 Follow Up Appt 1 month Michael Presley MD Start: 07-02-2014 End: 07-26-2014 Follow Up Appt 2 months Michael Presley MD Start: 06-16-2014 End: 10-25-2014 *Hepatic Function Panel Luciana Gomez MD Start: 06-16-2014 End: 10-25-2014 *UA - Urinalysis w/o Micro Luciana Gomez MD Start: 06-16-2014 End: 10-25-2014 Lipid panel [AGGREGATE] Luciana Gomez MD Start: 05-28-2014 End: 01-28-2015 Follow Up Appt 1 month Michael Presley MD Start: 05-04-2014 End: 05-06-2014 Follow Up Appt Other Michael Presley MD Start: 09-23-2013 End: 12-14-2013 Strep a assay w/optic Luciana Gomez MD Start: 07-03-2013 End: 02-01-2014 *Hepatic Function Panel Luciana Gomez MD Start: 07-03-2013 End: 12-07-2013 Thyroid stimulating hormone (TSH) Luciana Gomez MD Start: 07-03-2013 End: 02-01-2014 Triiodothyronine (T3) free Luciana Gomez MD Start: 08-13-2012 End: 08-13-2013 Gastroenterology Referral Luciana Gorman Start: 09-25-2011 End: 09-28-2011 Follow-up visit Luciana Gomez MD Start: 07-28-2010 End: 09-28-2011 Follow Up Appt 6 months Luciana Gomez MD Start: 07-14-2010 End: 07-14-2010 Assay of free thyroxine Luciana Gomez MD Start: 07-14-2010 End: 07-14-2010 Assay thyroid stim hormone Luciana Gomez MD Start: 07-14-2010 End: 07-14-2011 Endocrinology Referral Luciana Gomez MD Start: 07-14-2010 End: 07-14-2010 Follow Up Appt 2 weeks Luciana Gomez MD Start: 07-14-2010 End: 12-04-2011 Thyroid imaging with uptake Luciana Gomez MD Start: 07-14-2010 End: 07-14-2010 Thyroid stimulating hormone (TSH) Luciana Gomez MD Start: 05-02-2010 End: 05-10-2010 X-ray exam, knee, 4 or more Luciana Gomez MD Start: 04-03-2010 End: 04-03-2010 Follow Up Appt 6 months Luciana Gomez MD Start: 04-03-2010 End: 07-14-2010 Metabolic panel total ca Luciana Gomez MD Start: 01-26-2010 End: 03-30-2010 Follow Up Appt 1 month Luciana Gomez MD Start: 01-26-2010 End: 02-17-2010 Thyroid stimulating hormone (TSH) Luciana Gomez MD Start: 12-07-2009 End: 01-04-2010 Follow Up Appt 2 months Luciana Gomez MD Plan of Treatment Date Care Activity Detail Author Start: 06-21-2024 Influenza vaccination Influenza Vaccine (Season Ended) [facility] Start: 04-27-2024 End: 04-27-2024 Clinical Support 04/27/2024 11:00 AM EDT Clinical Support [address] [place] [address] Mallorie Millan, BOB[facility] Start: 04-20-2024 End: 04-20-2024 Clinical Support 04/20/2024 11:00 AM EDT Clinical Support [address] [place] [address] Mallorie Millan, BOB[facility] Start: 04-13-2024 End: 04-13-2024 Blepharoplasty upper eyelid Blepharoplasty Dermatochalasis of both upper eyelids Brow ptosis, bilateral 04/13/2024 7:30 AM EDT [facility] Start: 02-22-2024 Pneumococcal Vaccine: 65+ Years (1 - PCV) Pneumococcal Vaccine: 65+ Years (1 - PCV) [facility] Start: 02-22-2024 Pneumococcal Vaccine: 65+ Years (1 of 1 - PCV) Pneumococcal Vaccine: 65+ Years (1 of 1 - PCV) [facility] Start: 06-21-2023 COVID-19 Vaccine ( season) COVID-19 Vaccine ( season) [facility] Start: 06-21-2023 Influenza vaccination Influenza Vaccine (#1) [facility] Start: 04-26-2021 Lipid panel Lipid Panel [facility] Start: 02-12-2021 Hepatitis B Vaccines (2 of 3 - 19+ 3-dose series) Hepatitis B Vaccines (2 of 3 - 19+ 3-dose series) [facility] Start: 2019 RSV patients and/or patients aged 60+ years (1 - 1-dose 60+ series) RSV patients and/or patients aged 60+ years (1 - 1-dose 60+ series) [facility] Start: 05-26-2018 DTaP/Tdap/Td Vaccines (7 - Td or Tdap) DTaP/Tdap/Td Vaccines (7 - Td or Tdap) [facility] Start: 02-19-2017 End: 02-19-2017 Appointment Appointment [facility] Work Phone: Start: 02-19-2017 End: 02-19-2017 X-ray exam of hand X-Ray, Hand [facility] Work Phone: Start: 04-26-2016 End: 05-08-2016 *CMP Complete Metabolic Panel *CMP Complete Metabolic Panel [facility] Work Phone: Start: 04-26-2016 End: 05-08-2016 Lipid panel [AGGREGATE] *Lipid Profile [facility] Work Phone: Start: 04-26-2016 End: 05-08-2016 Thyroid stimulating hormone (TSH) *TSH [facility] Work Phone: Start: 04-26-2016 End: 05-08-2016 Thyroxine (T4) free *T4 free [facility] Work Phone: Start: 03-23-2016 End: 03-27-2016 *CBC with Differential *CBC with Differential [facility] Work Phone: Start: 03-23-2016 End: 03-27-2016 *CMP Complete Metabolic Panel *CMP Complete Metabolic Panel [facility] Work Phone: Start: 03-23-2016 End: 03-27-2016 *HSVS HSV Culture Screen [id number] *HSVS HSV Culture Screen [id number] [facility] Work Phone: Start: 03-23-2016 End: 03-27-2016 Lipid panel [AGGREGATE] *Lipid Profile [facility] Work Phone: Start: 02-09-2016 End: 03-27-2016 Mammogram, screening Mammogram, Screening, both breasts [facility] Work Phone: Start: 04-26-2015 End: 04-26-2015 Urology Referral Urology Referral Rodger Almonte, [address] [place] [address], [address], [place], [address] [facility] Work Phone: Start: 04-17-2015 End: 04-18-2015 Contrst x-ray, urinary tract X-Ray, KUB [facility] Work Phone: Start: 04-15-2015 End: 03-27-2016 *CUUID - Urine ELIZABETH Culture - Identificatn *CUUID - Urine ELIZABETH Culture - Identificatn [facility] Work Phone: Start: 04-15-2015 End: 04-17-2015 Urinalysis complete panel - Urine *UAC- Urinalysis, Complete w/ Micro [facility] Work Phone: Start: 02-09-2015 End: 02-09-2015 *CBC with Differential *CBC with Differential [facility] Work Phone: Start: 02-09-2015 End: 02-09-2015 *CMP Complete Metabolic Panel *CMP Complete Metabolic Panel [facility] Work Phone: Start: 02-09-2015 End: 02-09-2015 *EKG (Done in Hospital) *EKG (Done in Hospital) [facility] Work Phone: Start: 02-09-2015 End: 02-09-2015 *UA - Urinalysis w/o Micro *UA - Urinalysis w/o Micro [facility] Work Phone: Start: 02-09-2015 End: 02-09-2015 Lipid panel [AGGREGATE] *Lipid Profile [facility] Work Phone: Start: 02-09-2015 End: 02-09-2015 Thyroid stimulating hormone (TSH) *TSH [facility] Work Phone: Start: 02-09-2015 End: 02-09-2015 Thyroxine (T4) free *T4 free [facility] Work Phone: Start: 11-04-2014 End: 01-28-2015 Mammogram, Screening, both breasts Mammogram, Screening, both breasts [facility] Work Phone: Start: 07-23-2014 End: 07-26-2014 Follow Up Appt 1 month Follow Up Appt 1 month [facility] Work Phone: Start: 07-02-2014 End: 07-26-2014 Follow Up Appt 2 months Follow Up Appt 2 months [facility] Work Phone: Start: 06-16-2014 End: 10-25-2014 *Hepatic Function Panel *Hepatic Function Panel [facility] Work Phone: Start: 06-16-2014 End: 10-25-2014 *UA - Urinalysis w/o Micro *UA - Urinalysis w/o Micro [facility] Work Phone: Start: 06-16-2014 End: 10-25-2014 Lipid panel [AGGREGATE] *Lipid Profile [facility] Work Phone: Start: 05-28-2014 End: 01-28-2015 Follow Up Appt 1 month Follow Up Appt 1 month [facility] Work Phone: Start: 05-04-2014 End: 05-06-2014 Follow Up Appt Other Follow Up Appt Other [facility] Work Phone: Start: 09-23-2013 End: 12-14-2013 Rapid strep test Rapid Strep (Office) [facility] Work Phone: Start: 07-03-2013 End: 02-01-2014 *Hepatic Function Panel *Hepatic Function Panel [facility] Work Phone: Start: 07-03-2013 End: 02-01-2014 Complete cbc w/auto diff wbc CBC w/Diff [facility] Work Phone: Start: 07-03-2013 End: 12-07-2013 Thyroid stimulating hormone (TSH) *TSH [facility] Work Phone: Start: 07-03-2013 End: 12-07-2013 Thyroxine (T4) free *T4 free [facility] Work Phone: Start: 07-03-2013 End: 02-01-2014 Triiodothyronine (T3) free *T3-Free [facility] Work Phone: Start: 08-13-2012 End: 03-06-2013 Gastroenterology Referral Gastroenterology Referral Jaswant Mahan, [address] [facility], [address], [place], [address] [facility] Work Phone: Start: 09-25-2011 End: 09-28-2011 Follow-up visit Follow Up as needed [facility] Work Phone: Start: 07-28-2010 End: 09-28-2011 Follow Up Appt 6 months Follow Up Appt 6 months [facility] Work Phone: Start: 07-14-2010 End: 07-14-2010 Assay of free thyroxine *T4 free [facility] Work Phone: Start: 07-14-2010 End: 12-04-2011 Endocrinology Referral Endocrinology Referral Blaze Ceballos, [facility], [address] [place], [address] [facility] Work Phone: Start: 07-14-2010 End: 07-14-2010 Follow Up Appt 2 weeks Follow Up Appt 2 weeks [facility] Work Phone: Start: 07-14-2010 End: 07-14-2010 Free assay (FT-3) *T3-Free [facility] Work Phone: Start: 07-14-2010 End: 12-04-2011 Thyroid imaging with uptake NM Thyroid Uptake & Scan, Single [facility] Work Phone: Start: 07-14-2010 End: 07-14-2010 Thyroid stimulating hormone (TSH) *TSH [facility] Work Phone: Start: 05-02-2010 End: 05-10-2010 X-ray exam, knee, 4 or more X-Ray, Knee [facility] Work Phone: Start: 04-03-2010 End: 04-03-2010 Follow Up Appt 6 months Follow Up Appt 6 months [facility] Work Phone: Start: 04-03-2010 End: 07-14-2010 Metabolic panel total ca *BMP [facility] Work Phone: Start: 01-26-2010 End: 03-30-2010 Follow Up Appt 1 month Follow Up Appt 1 month [facility] Work Phone: Start: 01-26-2010 End: 02-17-2010 Potassium *Potassium; Serum, Plasma or Whole Blood [facility] Work Phone: Start: 12-07-2009 End: 01-04-2010 Follow Up Appt 2 months Follow Up Appt 2 months [facility] Work Phone: Start: 2009 Zoster Vaccines (1 of 2) Zoster Vaccines (1 of 2) [facility] Start: 1999 Screening for malignant neoplasm of breast Mammogram [facility] Start: 02-22-1980 Screening for malignant neoplasm of cervix [facility] Start: 1977 Diabetes mellitus screening Diabetes Screening [facility] Start: 1977 Hepatitis C screening Hepatitis C Screening [facility] Start: 1959 HIV screening HIV Screening [facility] Start: 1959 Lipid panel Lipid Panel [facility] Start: 1959 Screening for malignant neoplasm of colon [facility] Start: 1959 Screening for osteoporosis Bone Density Scan [facility] Start: 1959 Yearly Adult Physical Yearly Adult Physical [facility] Blepharoplasty upper eyelid Blepharoplasty Dermatochalasis of both upper eyelids [facility] Work Phone: End: 04-13-2024 Continuous Pulse oximetry, In Phase 1 Continuous Pulse oximetry, In Phase 1 Respiratory Care Routine Continuous until discontinued starting 04/13/2024 [facility] Service Area Work Phone: Comment on above: Continuous until discontinued starting 0 04/13/2024 End: 04-13-2024 Incentive spirometry Instruct Incentive spirometry Instruct Respiratory Care Routine Once for 1 Occurrences starting 04/13/2024 until 04/13/2024 [facility] Work Phone: Comment on above: Once for 1 Occurrences starting 04/13/20 until 04/13/2024 Patient Education [facility] Work Phone: Immunizations Immunization Date Immunization Notes Care Provider Fa [facility] 09-14-2022 influenza virus vaccine, unspecified formulation Claudio Elliott MD Work Phone: [facility] Work Phone: Payers Date Payer Category Payer Self-pay [id number] 2023 Unknown [id number] 2023 Unknown [id number] 2023 Unknown [id number] 2013 Unknown [id number] 1959 Unknown [id number] [id number] [id number] 1959 Unknown [id number] 2.16.8 [id number] 1959 Unknown [id number] 2.16.8 [id number] 1959 Unknown [id number] 2.16.8 [id number] Unknown [id number] 2.16.8 [id number] Unknown [id number] 2.16.8 [id number] Unknown [id number] 2.16.8 [id number] Unknown [id number] [id number] [id number] Social History Date Type Detail Facility Start: 10-02-2019 End: 10-02-2019 Tobacco smoking status NHIS Unknown if ever smoked [facility] Start: 09-01-[address] [facility] Start: 1960 Sex Assigned At Female [facility] Start: 12-05-2023 Tobacco smoking stat us NHIS Never smoked tobacco [facility] Work Phone: Start: 12-05-2023 Tobacco use and exposure Smokeless tobacco non-user [facility] Work Phone: Start: 12-05-2023 History of Social function [facility] Work Phone: Start: 12-05-2023 Tobacco use panel [facility] Work Phone: Start: 1960 Sex Assigned At Not on file U [facility] Work Phone: Start: 11-25-2023 End: 04-13-2024 Exposure to SARS-CoV-2 (event) Not sure [facility] Discharge instructions 04-13-2024 Discharge Instructions Note Date & Type Note Facility 04-13-2024 Hospital Discharg e instructions Jada Centeno RN - 04/13/2024 10:21 AM EDT FACIAL PLASTIC SURGERY POSTOPERATIVE INSTRUCTIONS EYELID AND EYEBROW SURGERY At Home after Surgery: Head Elevation: Keep your head elevated (the height of 2 pillows is appropriate) for 1 week to help with swelling. Ice: Apply cold compresses to the forehead/eyes, up to 20 minutes of each hour while awake after surgery, for the first 48 hours. This will help reduce swelling and bruising. Shower: You may start showering 24 hours after surgery. Do not let the shower spray hit your incisions directly and do not soak your face in water. Allow soapy water to run all over the incisions. Towel blot your face and neck gently after your shower. Incision Care: Apply ophthalmic ointment or aquaphor four times a day. The incision will heal most optimally if it is kept moist and clean. You can use hydrogen peroxide on Q-tips to gently clean any crusts. Do not rub but gently dab the incision to clean. If you have eyelid surgery, special drops and ointments will be prescribed; please use as directed. Medications: Take the medications as prescribed. You can take Tylenol in addition to the narcotic pain medication prescribed. Resume all home medications the night of surgery unless otherwise directed. Avoid aspirin and NSAIDs for one week after surgery. If you choose to take Arnica and/or Bromelain, start it the night before surgery and take it for 1 week total. You had Tylenol at 7:20am, you can have again at 1:20pm. Scopalamine patch is behind your right ear. May stay on for 72 hours,. Remove patch, discard away from pets and children. Do not touch eyes. WASH HANDS THOROUGHLY!!! Activity: Resume normal activities of daily living, as you feel able. However, avoid strenuous activity and heavy lifting (more than 10 lbs) for 3 weeks after surgery. Light activity such as walking may be resumed after 1 week after surgery. Sport activities may be resumed 1 month after surgery. Seek Medical Attention: Call the office or seek medical attention if you develop fever greater than 101 degrees, a painful area of fullness and bruising, excessive pain that is not well-controlled, skin rash, visual disturbances, or other unusual symptoms. Follow-Up Care: First Appointment: You will return one week after surgery for suture removal. This appointment may be with the nurse, fellow, or your physician, and will be scheduled prior to surgery. Additional Appointments: Ideally, your physician would like to see you about 4-6 weeks after surgery to examine the healing. After this, the follow-up is quite variable, and depends on how you are doing and feeling. Often, this means visits at about 3-6 months, and 9-12 months after surgery to follow your healing process. Please call the office at any time if you have any questions or concerns and would like to be seen sooner than your next scheduled visit. For questions or concerns call Dr. Elliott's office at [phone] After hours please call [phone] documented in this encounter [facility] Work Phone: History and physical note 04-13-2024 Claudio Elliott MD - 04/13/2024 7:20 AM EDT Note Date & Type Note Facility 04-13-2024 History and physical note History Of Present Illness Yancy Sanchez is a 64 y.o. female presenting with visual field disturbance secondary to brow ptosis and upper eyelid dermatochalasis. Past Medical History Past Medical History: Diagnosis Date Adverse effect of anesthesia delayed awakening in past Hypertension Overactive bladder Surgical History Past Surgical History: Procedure Laterality Date APPENDECTOMY HYSTERECTOMY TUBAL LIGATION Social History She reports that she has never smoked. She has never used smokeless tobacco. No history on file for alcohol use and drug use. Family History No family history on file. Allergies Patient has no known allergies. Review of Systems Physical Exam Rrr No wheeze/rhonchi/rales Last Recorded Vitals Blood pressure 127/63, pulse 71, temperature 36 C (96.8 F), temperature source Temporal, resp. rate 16, height 1.575 m (5' 2), weight 81 kg (178 lb 9.2 oz), SpO2 95%. Relevant Results Assessment/Plan Active Problems: Dermatochalasis of both upper eyelids Brow ptosis, bilateral B/l upper bleph, b/l brow lift Claudio Elliott MD [facility] Work Phone: History and physical note 04-13-2024 Claudio Elliott MD - 04/13/2024 7:20 AM EDT Note Date & Type Note Facility 04-13-2024 History and physical note History Of Present Illness Yancy Sanchez is a 64 y.o. female presenting with visual field disturbance secondary to brow ptosis and upper eyelid dermatochalasis. Past Medical History Past Medical History: Diagnosis Date Adverse effect of anesthesia delayed awakening in past Hypertension Overactive bladder Surgical History Past Surgical History: Procedure Laterality Date APPENDECTOMY HYSTERECTOMY TUBAL LIGATION Social History She reports that she has never smoked. She has never used smokeless tobacco. No history on file for alcohol use and drug use. Family History No family history on file. Allergies Patient has no known allergies. Review of Systems Physical Exam Rrr No wheeze/rhonchi/rales Last Recorded Vitals Blood pressure 127/63, pulse 71, temperature 36 C (96.8 F), temperature source Temporal, resp. rate 16, height 1.575 m (5' 2), weight 81 kg (178 lb 9.2 oz), SpO2 95%. Relevant Results Assessment/Plan Active Problems: Dermatochalasis of both upper eyelids Brow ptosis, bilateral B/l upper bleph, b/l brow lift Claudio Elliott MD documented in this encounter [facility] Work Phone: History of Present illness Narrative 12-05-2023 Claudio Elliott MD - 12/05/2023 1:00 PM EST Note Date & Type Note Facility 12-05-2023 History of Present illness Narrative History Of Present Illness Yancy Sanchez is a 63 y.o. female presenting with visual field disturbance. Patient states that she feels heaviness of her eyelids and feels that her visual field is impaired secondary to heavy eyelids. She did have a visual field test several years ago as she was planning on having upper blepharoplasty and states that she was found to have visual field disturbances previously. She does not have a copy of the test with her today. She notices more heaviness of her left upper eyelid than her right. Patient denies dry eyes. She wears a contact left for reading. Does not need to use drops. Patient states that she became interested in having a procedure done again after she saw her daughter's results after having upper blepharoplasty with me. Past Medical History She has no past medical history on file. Surgical History She has no past surgical history on file. Social History She reports that she has never smoked. She has never used smokeless tobacco. No history on file for alcohol use and drug use. Family History No family history on file. Allergies Patient has no known allergies. Review of Systems Constitutional: Negative. HENT: Negative. Eyes: Negative. Respiratory: Negative. Cardiovascular: Negative. Gastrointestinal: Negative. Endocrine: Negative. Genitourinary: Negative. Musculoskeletal: Negative. Skin: Negative. Allergic/Immunologic: Negative. Neurological: Negative. Hematological: Negative. Psychiatric/Behavioral: Negative. These systems were reviewed and are negative unless otherwise stated in the HPI Physical Exam Well appearing individual in no acute distress. Alert and oriented x 3. No stertor and no Stridor. Good voice. No LAD. Skin is soft and supple. No thyromegaly. No nasal deformities. No auricular deformities. Cranial Nerves grossly intact. EOM intact Normal range of motion of extremities. Normal gait Moderate to significant bilateral upper eyelid dermatochalasis with the extension of the eyelid onto the lash line. Moderate to significant bilateral brow ptosis, medial and lateral, left greater than right. No evidence of eyelid ptosis. Last Recorded Vitals Temperature 35.7 C (96.3 F), height 1.6 m (5' 3), weight 80.8 kg (178 lb 3.2 oz). Relevant Results Prior to Admission medications Medication Sig Start Date End Date Taking? Authorizing Provider oxybutynin XL (Ditropan-XL) 5 mg 24 hr tablet Take 1 tablet (5 mg) by mouth once daily. 08/22/22 Yes Historical Provider, lisinopril 20 mg tablet Take 1 tablet (20 mg) by mouth once daily. Historical Provider, No results found. Assessment/Plan Problem List Items Addressed This Visit None Visit Diagnoses Brow ptosis, bilateral - Primary Dermatochalasis of both upper eyelids Relevant Orders Case Request Operating Room: Blepharoplasty (Completed) Patient has a scheduled peripheral field vision test. She will send us the results of this test. I do feel she has obstruction of her visual ramos from upper eyelid dermatochalasis. We discussed addressing her brows as well as a portion of the heaviness is secondary to brow ptosis. We discussed an endoscopic approach, addressing the medial and lateral brows bilaterally. I had a thorough conversation with the patient during which I discussed the risks, benefits, and alternatives of surgery. No guarantees were made. The patient's questions were appropriately addressed. The patient expressed understanding. Follow-up after the peripheral field vision test. Claudio Elliott MD Facial Plastic & Reconstructive Surgery Otolaryngology - Head & Neck Surgery documented in this encounter [facility] Work Phone: Evaluation note Note Date & Type Note Facility Evaluation note No assessment information availa [facility] Work Phone: Evaluation note Note Date & Type Note Facility Evaluation note Diagnosis Brow ptosis, bilateral- Primary Dermatochalasis of both upper eyelids documented in this encounter [facility] Work Phone: Evaluation note Note Date & Type Note Facility Evaluation note Diagnosis Brow ptosis, bilateral- Primary Nausea Nausea alone Brow ptosis, bilateral Dermatochalasis of both upper eyelids documented in this encounter [facility] Work Phone: Summary Purpose Family History No Family History Records Found Relationship Condition Age at Onset Recorded Date/T stefani father Malignant neoplasm of lung Unknown Hypertension Unknown grandmother Malignant neoplasm of breast Unknown aunt Malignant neoplasm of breast Unknown brother Kidney disorder Unknown Advance Directives No Advanced Directives Records Found Advance Directive Response Recorded Date/ Time Advance Directives No May 12 1:22pm Living Will No September 01 12:38pm Power of Dietitian No September 01, 2019 12:38pm Advance Directive Response Recorded Date/ Time Advance Directives No May 12 12:22pm Living Will No September 01 019 11:38am Power of Dietitian No September 01, 2019 11:38am Chief Complaint and Reason for Visit Chief Complaint SCREENING Chief Complaint RUQ PAIN Chief Complaint RUQ PAIN FATTY LIVER, OBESITY Chief Complaint SCREENING/ ADD LABS Reason for Referral Specialty Diagnoses / Procedures Referred By Contac t Referred To Contact Diagnoses [place], [place] [address] [facility] [place] [address] Referral ID Status Reason Start Date Expiration Date V isits Requested Visits Authorized [id number] Pending Review 1 1 Additional Source Comments INFORMATION SOURCE (unrecogn ized section and content) DATE CREATED AUTHOR 04/16/2018 [facility] DATE CREATED AUTHOR AUTHOR'S ORGANIZ ATION 04/16/2018 [facility] ([place] DATE CREATED AUTHOR AUTHOR'S ORGANIZ ATION 04/15/2024 [facility] DATE CREATED AUTHOR AUTHOR'S ORGANIZ ATION 05/31/2024 [facility] DATE CREATED AUTHOR AUTHOR'S ORGANIZ ATION 03/25/2025 [facility] Goals (unrecognized section and content) Goals may be documented in a n alternate sectionGoals may be documented in an alternate sectionGoals may be documented in an alternate sectionGoals may be documented in an alternate sectionGoals may be documented in an alternate sectionGoals may be documented in an alternate section Care Teams (unrecognized sec tion and content) Team Status: Active Member Role Status Dates Dr. Ilda Yeager DO Family Provider Active Dr. Ilda Yeager DO Primary Care Provider Active Team Status: Inactive Member Role Status Dates Dr. Ilda Yeager DO Primary Care Provider, Attending Aimee soliman Active Team Status: Inactive Member Role Status Dates Dr. Ilda Yeager DO Primary Care Provide r, Attending Provider, Referring Provider Active [facility] [employer] Relationship Specialty Start Date End Date Ilda Yeager DO [address] [place] [address] PCP - Wilver [place] PCP 02/18/22 Ilda Yeager DO [address] [place] [address] PCP - General Family Medicine 12/05/23 [employer] Relationship Specialty Start Date End Date Ilda YeagerDO [address] [place] [address] PCP - Wilver [place] PCP 02/18/22 Ilda YeagerDO [address] [place] [address] PCP - General Family Medicine 12/05/23 Reason for Visit (unrecogniz ed section and content) Reason Comments Eyelid Lesion Here to see about katelyn elijoe surgery Specialty Diagnoses / Procedures Referred By Jv torre Referred To Contact Diagnoses Dermatochalasis of both upper eyelids Brow ptosis, bilateral Dermatochalasis of both upper eyelids [H02.831, H02.834] Bilateral Brow Ptosis [H57.813] Procedures TX BLEPHAROPLASTY UPPER EYELID TX REPAIR BROW PTOSIS Bilateral Blepharoplasty B[place] [address] [facility] [place] [address] [facility] [address] [facility] [address] [place] [id number] Referral ID Status Reason Start Date Expiration Date Visits Re quested Visits Authorized [id number] 1 1 Continuous Active and Recently Administ ered Medications (unrecognized section and content) Medication Order 04/11/2024 04/12/2024 04/13/2024 lactated Ringer's infusion (CANCELED) 100 mL/hr, intravenous, Continuous, Starting on Sat04/13/24 at 1030, Recovery (only) 0955 (Continued from OR - Provider: Era Aragon, BOBBY)1030 (Stopped - Provider: Era Aragon, BOBBY) PRN Medication Order 04/11/2024 04/12/2024 04/13/2024 erythromycin (Romycin) 5 mg/gram (0.5 %) ophthalmic ointment (CANCELED) As needed, Starting on Sat04/13/24 at 0950, Intraprocedure 0950 (Given - Provid er: Claudio Elliott MD) HYDROmorphone PF (Dilaudid) injection 0.2 mg (CANCELED) 0.2 mg, intravenous, Every 5 min PRN, pain moderate (4-6), first line, Starting on Sat04/13/24 at 1013, Recovery (only), Max total of 4 mg regardless of dose. 1014 (Given - Provid er: Era Aragon, BOBBY)1022 (Given - Provider: Era Aragon RN) lidocaine-epinephrine (Xylocaine W/EPI) 1 %-1:100,000 injection (CANCELED) As needed, Starting on Sat04/13/24 at 0822, Intraprocedure 0822 (Given - Provid er: Claudio Elliott MD - Comment: local injected eye lids and brow/hair line area) sodium chloride 0.9 % irrigation solution (CANCELED) As needed, Starting on Sat04/13/24 at 0823, Intraprocedure 0823 (Given - Provid er: Claudio Elliott MD - Comment: irrigation for surgical site) FOR RECORDS PERTAINING TO PATIENTS WHO ARE OR HAVE BEEN ENROLLED IN A CHEMICAL DEPENDENCY/SUBSTANCEABUSE PROGRAM, SOME INFORMATION MAY BE OMITTED. This clinical summary was aggregated from multiple sources. Caution should be exercised in using it in the provision of clinical care. This summary normalizes information from multiple sources, and as a consequence, information in this document may materially change the coding, format and clinical context of patient data. In addition, data may be omitted in some cases. CLINICAL DECISIONS SHOULD BE BASED ON THE PRIMARY CLINICAL RECORDS. [facility]. provides no warranty or guarantee of the accuracy or completeness of information in this document.
[2025-04-10 11:44] LABS: Ferritin 283 ng/mL (22-378); Iron 53 ug/dL (50-170)
== END | disposition home or self-care (01) ==
PROVIDERS: PCP Family Medicine; Referring Provider Nurse Practitioner Family; Visit Provider Nurse Practitioner Family
DX: E61.1 Iron deficiency (principal)
CPT/HCPCS: 36415; 82728; 83540